=== PATIENT | female | born 1995 | race Caucasian/White ===

== ENCOUNTER 2019-12-29 11:40 | Emergency (ER) | payer OTHER ==
[2019-12-29] MEDS ORDERED: IBUPROFEN 600 MG TAB PO STA (12:21)
--- NOTE | 2019-12-29 12:50 | ED ---
General Adult HPI - General Chief complaint: Extremity Injury, Lower Stated complaint: Toe injury Time Seen by Provider: 12/29/19 11:50 Source: patient, RN notes reviewed Mode of arrival: ambulatory Limitations: no limitations - History of Present Illness Initial comments: 24-year-old female presents to the emergency department for a chief complaint of great toe pain. Patient stubbed her toe yesterday and states it has been painful since. Patient states she also scraped it on the step. States under her nail hurts the most. Patient denies any other injuries. Patient did not fall. Patient has no other complaints at this time including shortness of breath, chest pain, abdominal pain, nausea or vomiting, headache, or visual changes. - Related Data Previous Rx's Medication Instructions Recorded Cephalexin [Keflex] 500 mg PO Q6HR 10 Days #40 cap 12/29/19 Sulfamethox-Tmp 800-160Mg [Bactrim 1 tab PO Q12HR #20 tab 12/29/19 DS 800-160 mg] Allergies Allergy/AdvReac Type Severity Reaction Status Date / Time No Known Allergies Allergy Verified 12/29/19 11:47 Review of Systems ROS Statement: Those systems with pertinent positive or pertinent negative responses have been documented in the HPI. ROS Other: All systems not noted in ROS Statement are negative. Past Medical History Past Medical History: Asthma Additional Past Medical History / Comment(s): heart murmur,migraines History of Any Multi-Drug Resistant Organisms: None Reported Past Surgical History: Orthopedic Surgery, Tonsillectomy Additional Past Surgical History / Comment(s): rt wrist Past Psychological History: Anxiety, Depression, PTSD Smoking Status: Never smoker Past Alcohol Use History: None Reported Past Drug Use History: None Reported General Exam Limitations: no limitations General appearance: alert, in no apparent distress Head exam: Present: atraumatic, normocephalic, normal inspection Eye exam: Present: normal appearance, PERRL, EOMI. Absent: scleral icterus, conjunctival injection, periorbital swelling ENT exam: Present: normal exam, mucous membranes moist Neck exam: Present: normal inspection, full ROM. Absent: tenderness, meningismus, lymphadenopathy Respiratory exam: Present: normal lung sounds bilaterally. Absent: respiratory distress, wheezes, rales, rhonchi, stridor Cardiovascular Exam: Present: regular rate, normal rhythm, normal heart sounds. Absent: systolic murmur, diastolic murmur, rubs, gallop, clicks Extremities exam: Present: full ROM (Full range of motion of the right great toe.), tenderness (Tenderness noted to the dorsal aspect of the distal phalanx of the right great toe.), normal capillary refill (Capillary refill less than 2 seconds of the right great toe.), other (Patient does have a small amount of purulent material under the distal portion of the great toe. Plantar aspect of toe is soft, no evidence of felon.). Absent: pedal edema, joint swelling, calf tenderness Course Vital Signs 12/29/19 11:43 Temperature 97.7 F Pulse Rate 88 Respiratory 18 Rate Blood Pressure 157/96 O2 Sat by Pulse 99 Oximetry Procedures - Incision & Drainage Consent Obtained: verbal consent Indication: abscess Site: foot I&D Cleaning Method: Chloroprep I&D Drainage Obtained: Blood (used cautery pen) Medical Decision Making - Medical Decision Making X-ray negative for acute osseous of normality. I do not see any evidence of foreign body. There is mild soft tissue swelling. I did use a cautery pen to expel pus under the nail bed. There is no lateral or medial nailfold paronychia present. Patient will try warm compresses to drain the pus flexible days. If symptoms do not improve she will start antibiotics. She will follow-up with her doctor. She'll return here for any worsening symptoms. Patient denies chance of . Disposition Clinical Impression: Abscess Disposition: HOME SELF-CARE Condition: Good Instructions (If sedation given, give patient instructions): Warm Compress or Soak (ED) Additional Instructions: Please take Motrin and Tylenol as directed for pain. Do warm compresses and warm soaks to assist in drainage. If this is not helping next day or 2 start antibiotic therapy. Follow-up with your doctor in one to 2 days. If you're having worsening symptoms such as fevers, worsening swelling or other concerning symptoms return to the emergency room. Prescriptions: Sulfamethox-Tmp 800-160Mg [Bactrim DS 800-160 mg] 1 tab PO Q12HR #20 tab Cephalexin [Keflex] 500 mg PO Q6HR 10 Days #40 cap Is patient prescribed a controlled substance at d/c from ED?: No Referrals: Abiodun García NPC [Primary Care Provider] - 1-2 days Time of Disposition: 13:43
--- NOTE | 2019-12-29 13:30 | XR ---
EXAMINATION TYPE: XR toes RT DATE OF EXAM: 12/29/2019 COMPARISON: NONE HISTORY: 24-year-old female stubbing injury to the great toe, pain TECHNIQUE: 3 views coned down right first toe FINDINGS: Mild soft tissue swelling of the great toe. No acute fracture, subluxation, dislocation. IMPRESSION: Mild soft tissue swelling. No acute osseous abnormality seen.
[2019-12-29 13:45] VITALS: BP 161/79; PULSE 79; RESP 16; TEMP 98.3
== END 2019-12-29 13:50 | disposition home or self-care (01) ==
LOC: EC 11:40
DX: L02.611 Cutaneous abscess of right foot (principal)
CPT/HCPCS: 10060; 99283

== ENCOUNTER 2020-03-26 18:49 | Emergency (ER) | payer OTHER ==
--- NOTE | 2020-03-26 19:24 | ED ---
General Adult HPI - General Chief complaint: Headache Stated complaint: headache Time Seen by Provider: 03/26/20 19:03 Source: patient, RN notes reviewed Mode of arrival: ambulatory Limitations: no limitations - History of Present Illness Initial comments: Patient is a pleasant 24-year-old female presenting to the emergency Department with complaints of headache. Patient did have lumbar puncture yesterday to evaluate for her chronic headaches. Patient has headache since that time. Headache is worse with certain positions including upright position. Discomfort is currently 6 or 7/10. Discomfort is mild with lying down. Headache is more frontal and temporal at this time. No fever. No weakness. - Related Data Home Medications Medication Instructions Recorded Confirmed Ibuprofen [Motrin Ib] 800 mg PO Q8H PRN 12/29/19 12/29/19 Naproxen [Naprosyn] 500 mg PO Q12HR PRN 12/29/19 12/29/19 Previous Rx's Medication Instructions Recorded Cephalexin [Keflex] 500 mg PO Q6HR 10 Days #40 cap 12/29/19 Sulfamethox-Tmp 800-160Mg [Bactrim 1 tab PO Q12HR #20 tab 12/29/19 DS 800-160 mg] Allergies Allergy/AdvReac Type Severity Reaction Status Date / Time bee venom protein (honey bee) Allergy Swelling Verified 03/26/20 18:55 chocolate flavor Allergy Unknown Verified 03/26/20 18:55 sertraline [From Zoloft] AdvReac HIGH Verified 03/26/20 18:55 ANXIETY ARTIFICIAL SWEETNERS Allergy Unknown Uncoded 03/26/20 18:55 Review of Systems ROS Statement: Those systems with pertinent positive or pertinent negative responses have been documented in the HPI. ROS Other: All systems not noted in ROS Statement are negative. Constitutional: Denies: fever Eyes: Denies: eye pain ENT: Denies: ear pain Respiratory: Denies: cough Cardiovascular: Denies: chest pain Endocrine: Denies: fatigue Gastrointestinal: Denies: abdominal pain Genitourinary: Denies: dysuria Musculoskeletal: Denies: back pain Skin: Denies: rash Neurological: Reports: headache. Denies: weakness, confusion Past Medical History Past Medical History: Asthma Additional Past Medical History / Comment(s): heart murmur,migraines History of Any Multi-Drug Resistant Organisms: None Reported Past Surgical History: Orthopedic Surgery, Tonsillectomy Additional Past Surgical History / Comment(s): rt wrist Past Psychological History: Anxiety, Depression, PTSD Smoking Status: Never smoker Past Alcohol Use History: None Reported Past Drug Use History: None Reported General Exam Limitations: no limitations General appearance: alert, in no apparent distress Head exam: Present: atraumatic, normocephalic Eye exam: Present: normal appearance, PERRL, EOMI ENT exam: Present: normal oropharynx Neck exam: Present: normal inspection. Absent: tenderness, meningismus Respiratory exam: Present: normal lung sounds bilaterally Cardiovascular Exam: Present: regular rate, normal rhythm GI/Abdominal exam: Present: soft. Absent: tenderness Extremities exam: Present: normal inspection Neurological exam: Present: alert Psychiatric exam: Present: normal affect, normal mood Skin exam: Present: normal color Course Vital Signs 03/26/20 18:50 Temperature 98.5 F Pulse Rate 73 Respiratory 18 Rate Blood Pressure 119/86 O2 Sat by Pulse 97 Oximetry Medical Decision Making - Medical Decision Making Case was discussed with anesthesia, Dr. Alvarado who did come evaluate the patient. Patient has now decided not to have lumbar puncture done and is comfortable with discharge. Patient is receptive to pain medication prior to discharge. Disposition Clinical Impression: Headache Disposition: HOME SELF-CARE Condition: Stable Instructions (If sedation given, give patient instructions): Acute Headache (ED) Additional Instructions: Please follow-up with your neurologist tomorrow. Please also follow-up with primary care physician in the next day or 2 for recheck. Return for fevers, weakness or confusion, worsening symptoms or other concerns. Is patient prescribed a controlled substance at d/c from ED?: No Referrals: Jerry Manrique MD [Primary Care Provider] - 1-2 days Time of Disposition: 19:51
[2020-03-26] MEDS ORDERED: HYDROmorphone 1 MG/ML 1 ML SYRINGE IM STA (19:48)
--- NOTE | 2020-03-26 19:59 | P.PAINCN ---
History of Present Illness - Reason for Consult Consult date: 03/26/20 - History of Present Illness The pleasant 24-year-old female who recently had a lumbar puncture for eval of pseudotumor cerebri at an outside facility was referred here for evaluation for epidural blood patch. Patient had the lumbar puncture yesterday and has since had a headache that she says gets worse with sitting up and gets slightly better with laying down. She does not report any worsening of her headache, blurry vision, motor or sensory deficits or any other cranial nerve abnormalities. Patient has never had a lumbar puncture prior to this or any epidural injection in the past. In addition to above, 13-point review of systems is also negative for chest pain, shortness of breath, changes in vision, changes in hearing, new onset weakness, abdominal pain, diarrhea, extreme fatigue, malaise, fever, skin changes, homicidal or suicidal ideation, or bowel or bladder incontinence. Physical exam: Vital Signs: Reviewed in EMR GENERAL: Well appearing, in no acute distress, sitting comfortably PSYCH: Mood and affect is appropriate. Awake, alert, and oriented SKIN: Skin color, texture, turgor normal, no rashes or lesions HEENT: Normocephalic, atraumatic. EOM intact CV: No pedal edema RESP: Respirations are unlabored, no audible wheezing GI: Abdomen non-distended MUSCULOSKELETAL: Bilateral upper and lower extremity strength is normal and symmetric. No atrophy or tone abnormalities are noted. Extremities: Peripheral joint ROM is full and pain free without obvious instability or laxity in all four extremities. No edema or skin discolorations noted. NEUR: Bilateral upper and lower extremity coordination and muscle stretch reflexes are physiologic and symmetric. Negative clonus. No loss of sensation is noted. Cranial nerves are grossly intact. Assessment: 1. Post meningeal puncture headache Plan: - Had a discussion with the patient and her mother regarding her pathology. I mentioned that 85% of post meningeal puncture headaches resolve within 5-7 days. It is also promising that when I came into the room, the patient was sitting comfortably with all lights illuminated and not very uncomfortable. I educated her on the risks of the procedure which included possible worsening of the headache, infection, bleeding. After hearing the risks and benefits of the procedure, the patient decided that she would like to defer the procedure an opt for conservative management. At this time I would recommend bed rest and caffeine 300 mg 1-2x daily as needed for the next few days. If she is still feeling significant discomfort she can come back for the blood patch. Past Medical History Past Medical History: Asthma Additional Past Medical History / Comment(s): heart murmur,migraines History of Any Multi-Drug Resistant Organisms: None Reported Past Surgical History: Orthopedic Surgery, Tonsillectomy Additional Past Surgical History / Comment(s): rt wrist Past Psychological History: Anxiety, Depression, PTSD Smoking Status: Never smoker Past Alcohol Use History: None Reported Past Drug Use History: None Reported Medications and Allergies Home Medications Medication Instructions Recorded Confirmed Type Cephalexin [Keflex] 500 mg PO Q6HR 10 Days #40 cap 12/29/19 Rx Ibuprofen [Motrin Ib] 800 mg PO Q8H PRN 12/29/19 12/29/19 History Naproxen [Naprosyn] 500 mg PO Q12HR PRN 12/29/19 12/29/19 History Sulfamethox-Tmp 800-160Mg [Bactrim 1 tab PO Q12HR #20 tab 12/29/19 Rx DS 800-160 mg] Allergies Allergy/AdvReac Type Severity Reaction Status Date / Time bee venom protein (honey bee) Allergy Swelling Verified 03/26/20 18:55 chocolate flavor Allergy Unknown Verified 03/26/20 18:55 sertraline [From Zoloft] AdvReac HIGH Verified 03/26/20 18:55 ANXIETY ARTIFICIAL SWEETNERS Allergy Unknown Uncoded 03/26/20 18:55 Physical Exam Vitals: Vital Signs Temp Pulse Resp BP Pulse Ox 03/26/20 18:50 98.5 F 73 18 119/86 97 Intake and Output 03/26/20 03/26/20 03/26/20 06:59 14:59 22:59 Other: Weight 158.757 kg PQRS Measure Charge Sheet PQRS Narrative: Blood Pressure 119/86 Pain Intensity 6 Scale Used Numeric (1 - 10) Home Medications: Ambulatory Orders Cephalexin [Keflex] 500 mg PO Q6HR 10 Days #40 cap 12/29/19 Ibuprofen [Motrin Ib] 800 mg PO Q8H PRN 12/29/19 Naproxen [Naprosyn] 500 mg PO Q12HR PRN 12/29/19 Sulfamethox-Tmp 800-160Mg [Bactrim DS 800-160 mg] 1 tab PO Q12HR #20 tab 12/29/19
[2020-03-26 20:19] VITALS: BP 118/80; PULSE 71; RESP 16; TEMP 98.3
== END 2020-03-26 20:17 | disposition home or self-care (01) ==
LOC: EC 18:49
DX: R51.9 Headache, unspecified (principal); G97.1 Other reaction to spinal and lumbar puncture; Z91.030 Bee allergy status; Z91.048 Other nonmedicinal substance allergy status; Z88.8 Allergy status to other drugs, medicaments and biological substances; Z91.02 Food additives allergy status
CPT/HCPCS: 99284; 96372; J1170

== ENCOUNTER 2020-03-29 10:40 | Emergency (ER) | payer OTHER ==
[2020-03-29] MEDS ORDERED: diphenhydrAMINE 50 MG/ML 1 ML VIAL IVP STA (11:06)
[2020-03-29] MEDS ORDERED: ACETAMINOPHEN TAB 325 MG TAB PO STA (11:06)
[2020-03-29] MEDS ORDERED: ONDANSETRON 4 MG/2 ML VIAL IVP STA (11:06)
--- NOTE | 2020-03-29 11:27 | ED ---
Headache HPI - General Chief Complaint: Headache Stated Complaint: migraine Time Seen by Provider: 03/29/20 10:53 Mode of arrival: ambulatory Limitations: no limitations - History of Present Illness Initial Comments: Patient is a 24-year-old obese female who presents the ER with the complaint of headache. She stated that she recently got a lumbar puncture done to test for pseudotumor cerebri. She stated that 2 days after the lumbar puncture she presented to the ER with acute headache that was worse with position changes. She was seen by pain management and anesthesia. She deferred a blood patch at that time period and opted for conservative management with caffeine. Today she notes that the headache has not subsided at all. She noted that it was generalized pain. She noted that she was interested in possibly getting the blood patch done today. She stated that the pain is 8-9 out of 10. She noted that everything makes the headache worse such as lites sound spells position changes. She noted that the caffeine was not helping but minimally. Patient denied any nausea, vomiting, constipation, diarrhea, chills, fever, change in vision, change in hearing, chest pain, shortness of breath, dysuria - Related Data Home Medications Medication Instructions Recorded Confirmed Ibuprofen [Motrin Ib] 800 mg PO Q8H PRN 12/29/19 03/29/20 Albuterol Nebulized [Ventolin 2.5 mg INHALATION RT-QID PRN 03/29/20 03/29/20 Nebulized] Albuterol Sulfate [Ventolin HFA] 2 puff INHALATION RT-QID PRN 03/29/20 03/29/20 EPINEPHrine (Auto Inject) [Epipen] 0.3 mg IM ONCE PRN 03/29/20 03/29/20 acetaZOLAMIDE [Diamox Sequels] 500 mg PO BID@0900,1500 03/29/20 03/29/20 Allergies Allergy/AdvReac Type Severity Reaction Status Date / Time bee venom protein (honey bee) Allergy Swelling Verified 03/29/20 11:29 chocolate flavor Allergy Unknown Verified 03/29/20 11:29 sertraline [From Zoloft] AdvReac HIGH Verified 03/29/20 11:29 ANXIETY ARTIFICIAL SWEETNERS Allergy Unknown Uncoded 03/29/20 11:29 Review of Systems ROS Statement: Those systems with pertinent positive or pertinent negative responses have been documented in the HPI. ROS Other: All systems not noted in ROS Statement are negative. Past Medical History Past Medical History: Asthma Additional Past Medical History / Comment(s): heart murmur,migraines History of Any Multi-Drug Resistant Organisms: None Reported Past Surgical History: Orthopedic Surgery, Tonsillectomy Additional Past Surgical History / Comment(s): rt wrist Past Psychological History: Anxiety, Depression, PTSD Smoking Status: Never smoker Past Alcohol Use History: None Reported Past Drug Use History: None Reported General Exam Limitations: no limitations General appearance: alert, in no apparent distress Head exam: Present: atraumatic, normocephalic, normal inspection Eye exam: Present: normal appearance, PERRL, EOMI. Absent: scleral icterus, conjunctival injection, periorbital swelling ENT exam: Present: normal exam, mucous membranes moist Neck exam: Present: normal inspection. Absent: tenderness, meningismus, lymphadenopathy Respiratory exam: Present: normal lung sounds bilaterally. Absent: respiratory distress, wheezes, rales, rhonchi, stridor Cardiovascular Exam: Present: regular rate, normal rhythm, normal heart sounds. Absent: systolic murmur, diastolic murmur, rubs, gallop, clicks GI/Abdominal exam: Present: soft, normal bowel sounds. Absent: distended, tenderness, guarding, rebound, rigid Extremities exam: Present: normal inspection, full ROM, normal capillary refill. Absent: tenderness, pedal edema, joint swelling, calf tenderness Neurological exam: Present: alert, oriented X3, CN II-XII intact Psychiatric exam: Present: normal affect, normal mood Skin exam: Present: warm, dry, intact, normal color. Absent: rash Course Vital Signs 03/29/20 10:42 Temperature 98.4 F Pulse Rate 85 Respiratory 18 Rate Blood Pressure 121/84 O2 Sat by Pulse 97 Oximetry Medical Decision Making - Medical Decision Making 24-year-old white female status post lumbar puncture. 5-6 days out. Anesthesia was consult good. Anesthesia is going to go ahead and proceed with the blood patch. Patient is getting Benadryl Zofran and Tylenol to help with pain nausea and headache. Disposition Clinical Impression: Migraine headache, Post-dural puncture headache Disposition: HOME SELF-CARE Instructions (If sedation given, give patient instructions): Acute Headache (ED), Epidural Blood Patch (DC) Is patient prescribed a controlled substance at d/c from ED?: No Referrals: Jerry Manrique MD [Primary Care Provider] - 1-2 days Time of Disposition: 12:47
--- NOTE | 2020-03-29 12:26 | P.PCN ---
Date of Procedure: 03/29/20 Procedure(s) Performed: Procedure= lumbar epidural blood patch. Preoperative diagnosis= postdural puncture headache. Postoperative diagnoses= post dural puncture headache. Indication for the procedure= patient developed headache after agnostic lumbar puncture done in 03/25/2020, headache persists in spite of conservative treatment, there is no focal neurological deficit, no fever, no neck stiffness, headache worse with sitting and standing position, and improved with lying supine, for this reason patient is a good candidate for epidural blood patch. anesthesia= local infiltration with lidocaine 1% 3 mL. Complications= none. Description of the procedure= patient identified risks and benefits of the procedure explained to the patient and patient agreed with proceeding, vital signs monitored during the procedure and IV sedation given to decrease anxiety, Back lumbar area prepped with chlorhexidine 3 times, then drape applied the local infiltration of the skin and subcutaneous tissue with lidocaine 1% 3 mL at L5-S1 interlaminar space then 18-gauge 5 inches long Tuohy needle advanced slowly at L4-5 interlaminar space, There was positive loss of resistance to normal saline, no heme no paresthesia no cerebrospinal fluid, then after that 20 ML of the blood taken from the patient under strict sterile technique, and after the left antecubital area prepped with a chlorhexidine 3 times using 20-gauge Angiocath, and under sterile technique the 20 ML of the block taken from the patient injected in the epidural space after negative aspiration for heme or CSF and there was no paresthesia then the needle removed intact the skin cleaned and the , bandage applied and patient discharged home in stable condition after discharge criteria met, and patient will follow up with the clinic when necessary
[2020-03-29] MEDS ORDERED: ONDANSETRON ODT 4 MG TAB PO STA (12:41)
[2020-03-29] MEDS ORDERED: diphenhydrAMINE 25 MG CAP PO STA (12:41)
[2020-03-29 12:55] VITALS: BP 126/65; PULSE 78; RESP 20; TEMP 98.2
== END 2020-03-29 12:50 | disposition home or self-care (01) ==
LOC: EC 10:40
DX: G43.909 Migraine, unspecified, not intractable, without status migrainosus (principal); G97.1 Other reaction to spinal and lumbar puncture; J45.909 Unspecified asthma, uncomplicated; Z79.899 Other long term (current) drug therapy; Z91.030 Bee allergy status; Z91.018 Allergy to other foods; Z91.02 Food additives allergy status; Z88.8 Allergy status to other drugs, medicaments and biological substances
CPT/HCPCS: 62273; 99283

== ENCOUNTER → 2020-04-17 | Outpatient (CLI) | payer OTHER ==
[2020-04-17 15:34] VITALS: BP 141/86; PULSE 87; RESP 18; TEMP 98.2; BMI 63.6
--- NOTE | 2020-04-17 15:40 | P.HPBAR ---
Bariatric H&P - History & Physicial H&P Date: 04/17/20 History & Physicial: Visit/CC: initial visit Patient initial contact: Initial weight: Initial weight in pounds: Height: 5 ft 5.5 in Initial BMI: Last weight: Current weight: 175.994 kg Current weight in pounds: 388.00 Current BMI: 63.6 [place] body weight (based on NIH guidelines): 57.833 kg Excess body weight loss: The patient is a 24 year-old F who presents for Bariatric Assessment. DATE OF SERVICE: 04/17/2020 REASON FOR CONSULTATION: Initial bariatric evaluation. HISTORY OF PRESENT ILLNESS: Lisseth Mccormack is a 24-year-old female who comes with lifelong morbid obesity. She has been trying to loose weight for at least 10 years and as a child. Her highest weight is at present. She reports 60 pounds weight gain from the Depovera control injection. She has tried Keto diet, supplements, calorie counts, gyms, without any successful weight loss including fasting. Her most weight loss is 10 pounds. She denies any prior abdominal surgeries. Her father is ex- and has tried diet and exercise with him. Her mother has troubles with her weight. She reports lower back pain as a result of her morbid obesity. She reports being accident prone. She denies hip pain. She has knee pain and her ankles roll. She reports lower extremity swelling. She has easy bruising. She has spontaneous bleeds. She has sleep apnea and reports daytime fatigue. She has high blood pressure. She has migraines. Her primary care provider is Mauricio García.She is looking into weight loss. She is looking into the procedure with the least amount of risk. She presents to me first time in consultation for weight loss management. At height of 5 feet 5.5 inches, her ideal body weight is 149 pounds. She comes in 387 pounds. Her body mass index is 63.6. She is 238 pounds overweight. PAST MEDICAL HISTORY: 1. Morbid obesity due to excess calories 2. Body mass index of 63.6, initial 3. Osteoarthritis of the knees. 4. Osteoarthritis of the lower back. 5. Asthma 6. Migraines 7. Depressive disorder 8. Generalized anxiety disorder 9. Post traumatic stress disorder (PTSD) 10. Bilateral lower extremity edema PAST SURGICAL HISTORY: 1. Tonsillectomy 2. Adenoidectomy 3. Right wrist surgery 4. [place] tooth extraction HOME MEDICATIONS: Home Medications Medication Instructions Recorded Confirmed Ibuprofen [Motrin Ib] 800 mg PO Q8H PRN 12/29/19 04/17/20 Albuterol Sulfate [Ventolin HFA] 2 puff INHALATION RT-QID PRN 03/29/20 04/17/20 EPINEPHrine (Auto Inject) [Epipen] 0.3 mg IM ONCE PRN 03/29/20 04/17/20 acetaZOLAMIDE [Diamox Sequels] 500 mg PO BID@0900,1500 03/29/20 04/17/20 Ipratropium-Albuterol Nebulize 3 ml INHALATION DIRECTED PRN 04/17/20 04/17/20 [Duoneb 0.5 mg-3 mg/3 ml Soln] Zonisamide [Zonegran] 100 mg PO DAILY 04/17/20 04/17/20 ALLERGIES: Allergies Allergy/AdvReac Type Severity Reaction Status Date / Time bee venom protein (honey bee) Allergy Swelling Verified 04/17/20 15:42 chocolate flavor Allergy Unknown Verified 04/17/20 15:42 sertraline [From Zoloft] AdvReac HIGH Verified 04/17/20 15:42 ANXIETY ARTIFICIAL SWEETNERS Allergy Unknown Uncoded 04/17/20 15:42 SOCIAL HISTORY: Denies past tobacco use. FAMILY HISTORY: No family history of ulcerative colitis disease or Crohn's disease. Family history of morbid obesity. No lupus in the family. No reports of stomach or esophageal cancer. REVIEW OF ORGAN SYSTEMS: CONSTITUTIONAL: At height of 5 feet 5.5 inches, her ideal body weight is 149 pounds. She comes in 387 pounds. Her body mass index is 63.6. She is 238 pounds overweight. HEENT: Denies any active troubles with vision or hearing. ENDOCRINE: Denies diabetes. No hypothyroidism. CARDIOVASCULAR: Has past reports of palpitations or heart attacks or chest pain. Has heart murmurs. Has hypertension, untreated. RESPIRATORY: Has asthma. Has sleep apnea, untreated. GASTROINTESTINAL: Denies any bright red blood per rectum. No diarrhea. No constipation. Has gastroesophageal reflux disease. GENITOURINARY: No bladder urgency. No recent blood in urine MUSCULOSKELETAL: Has lower back pain and joint pain. Has osteoarthritis of the knees. History of bilateral lower extremity edema. NEURO: Has headaches. No seizure disorders. PSYCH: Has depression. No suicidal ideation. Has anxiety and post traumatic stress disorder. RHEUMATOLOGIC: No lupus. No rheumatoid arthritis. HEMATOLOGIC: Denies any abnormal bleeding. Has easy bruising. SKIN: No rash. No skin cancer. PHYSICAL EXAM: VITAL SIGNS: Height 5 foot 5.5 inches, weight 387 pounds. BMI 63.6 Vital Signs Temp 98.2 F 04/17/20 15:23 Pulse 87 04/17/20 15:23 Resp 18 04/17/20 15:23 BP 141/86 04/17/20 15:23 Pulse Ox GENERAL: Well-developed in no acute distress. HEENT: No scleral icterus. Extraocular movements grossly intact. Hears conversational speech. No nasal drainage. NECK: Supple without lymphadenopathy. CHEST: Nonlabored respirations with equal bilateral excursions. CARDIOVASCULAR: Regular rate and regular rhythm. Distal 2+ pulses. ABDOMEN: Obese, soft, nontender, nondistended. MUSCULOSKELETAL: No clubbing, cyanosis. NEURO: No focal or lateralizing signs. Cranial nerves 2 through 12 grossly within normal limits. PSYCH: Appropriate affect. Alert and oriented to person, place and time. SKIN: Good skin turgor. Well perfused. ASSESSMENT: 1. Morbid obesity due to excess calories 2. Body mass index of 63.6, initial 3. Osteoarthritis of the knees. 4. Osteoarthritis of the lower back. 5. Asthma 6. Migraines 7. Depressive disorder 8. Generalized anxiety disorder 9. Post traumatic stress disorder (PTSD) 10. Bilateral lower extremity edema PLAN: 1. Surgical options including a band, gastric bypass, sleeve gastrectomy were described in detail. Alternatives such as gastric balloon including duodenal switch were described. She is looking into the gastric bypass. 2. The [place] bariatric surgical collaborative data and outcomes calculator were described with surgical options. 3. Recommend a bariatric metabolic panel to evaluate for micro- including macronutrient deficiencies. 4. For history of daytime somnolence, recommend evaluation and treatment for sleep apnea. 5. Dietary surveillance and counseling was reviewed. Increased protein intake over 65 grams daily advised. 6. Will need cardiac risk assessment. 7. Recommend medical risk assessment. 8. Psych assessment per insurance guidelines. 9. Recommend upper endoscopy. 10. Recommend 12-lead EKG. Thank you for this consultation. Past Medical History Past Medical History: Asthma Additional Past Medical History / Comment(s): heart murmur,migraines History of Any Multi-Drug Resistant Organisms: None Reported Past Surgical History: Adenoidectomy, Orthopedic Surgery, Tonsillectomy Additional Past Surgical History / Comment(s): rt wrist; wisdom teeth Past Anesthesia/Blood Transfusion Reactions: No Reported Reaction Past Psychological History: Anxiety, Depression, PTSD Smoking Status: Never smoker Past Alcohol Use History: None Reported Past Drug Use History: None Reported Surgical - Exam Vital Signs Temp Pulse Resp BP 98.2 F 87 18 141/86 04/17/20 15:23 04/17/20 15:23 04/17/20 15:23 04/17/20 15:23 Bariatric Checklist Checklist: Plan: Checklist: EGD: 1. Hiatal hernia: 2. H. Pylori: HgbA1c: Vitamin D: Smoking: Primary care physician referral: Dr. García ([place]) Psychiatry clearance: Cardiology clearance: Sleep study: Diet journal: VTE risk score: VTE risk level: Rehab needs at discharge:
== END | disposition home or self-care (01) ==
LOC: BARWHC3 14:26
PROVIDERS: ATTEND Surgery Plastic and Reconstructive Surgery
DX: E66.01 Morbid (severe) obesity due to excess calories (principal); Z68.44 Body mass index [BMI] 60.0-69.9, adult; M17.0 Bilateral primary osteoarthritis of knee; J45.909 Unspecified asthma, uncomplicated; M47.816 Spondylosis without myelopathy or radiculopathy, lumbar region; G43.909 Migraine, unspecified, not intractable, without status migrainosus; F32.9 Major depressive disorder, single episode, unspecified; F41.1 Generalized anxiety disorder; F43.10 Post-traumatic stress disorder, unspecified; R60.0 Localized edema; Z91.030 Bee allergy status; Z91.02 Food additives allergy status
CPT/HCPCS: 99211

== ENCOUNTER → 2020-04-24 | Outpatient (CLI) | payer OTHER ==
[2020-04-24 16:16] LABS: HCT 40.5 % (37.2-46.3); HGB 13.3 g/dL (12.0-15.0); MCH 29.7 pg (27.0-32.0); MCHC 32.8 g/dL (32.0-37.0); MCV 90.4 fL (80.0-97.0); Mean Platelet Volume 9.5 fL (9.5-12.2); Platelet Count 363 X 10*3/uL (140-440); RBC 4.48 X 10*6/uL (4.10-5.20); RDW 12.9 % (11.5-14.5); WBC 10.09 X 10*3/uL (4.50-10.00)
[2020-04-24 17:15] LABS: Hemoglobin A1C 5.3 % (4.0-6.0)
[2020-04-24 20:38] LABS: % Iron Saturation 13.08 (12.00-45.00); Albumin 4.4 g/dL (3.80-4.90); Albumin/Globulin Ratio 1.83 (1.60-3.17); Anion Gap 6.7 mmol/L (4.00-12.00); Calcium 9.2 mg/dL (8.7-10.3); Carbon Dioxide 22.3 mmol/L (21.6-31.8); Chol/HDL Ratio 5.22; Globulin 2.4 g/dL (1.6-3.3); LDL Cholesterol,Calculated 133.6 mg/dL (0.0-131.0); Non-African American GFR(CKD) 79.3 (60.0-200.0); Phosphorus 4.8 mg/dL (2.4-5.1); Total Bilirubin 0.3 mg/dL (0.3-1.2); Total Protein 6.8 g/dL (6.2-8.2); VLDL Calculation 22.4 mg/dL (5.00-40.00)
[2020-04-24 20:44] LABS: Ferritin 38.4 ng/mL (10.0-291.0)
[2020-04-24 20:46] LABS: Folate, Serum 3.3 ng/mL
[2020-04-24 22:33] LABS: INR 0.91 (0.90-1.11); Partial Thromboplastin Time 26.7 sec (23.5-31.0)
[2020-04-25 10:15] LABS: Zinc, Serum 61 ug/dL (60-130)
[2020-04-26 07:06] LABS: Vitamin A 43 ug/dL (38-106)
[2020-04-26 13:47] LABS: Vit B1(Thiamine) 87 ug/L (38-122)
[2020-04-28 18:04] LABS: Selenium 104 mcg/L (63-160)
== END | disposition home or self-care (01) ==
LOC: LABWHC1 10:10
PROVIDERS: ATTEND Surgery Plastic and Reconstructive Surgery
DX: E55.9 Vitamin D deficiency, unspecified (principal); E66.01 Morbid (severe) obesity due to excess calories; E89.1 Postprocedural hypoinsulinemia; D50.8 Other iron deficiency anemias; K90.89 Other intestinal malabsorption; K50.90 Crohn's disease, unspecified, without complications; K74.1 Hepatic sclerosis; N19 Unspecified kidney failure
CPT/HCPCS: 36415; 80053; 80061; 82306; 82525; 82607; 82728; 82746; 83036; 83540; 83550; 83735; 83970; 84100; 84134; 84255; 84425; 84443; 84590; 84630; 85027; 85610; 85730; 93005

== ENCOUNTER 2020-07-15 07:03 | Day surgery (SDC) | payer OTHER ==
[2020-07-12 10:41] VITALS: BMI 62.7
[~2020-07-15 07:03] MED LIST: LACTATED RINGERS 1,000 ML IV SCH
[2020-07-15 07:26] VITALS: TEMP 98.1
[2020-07-15] MEDS ORDERED: ONDANSETRON 4 MG/2 ML VIAL ONE (07:32)
[2020-07-15] MEDS ORDERED: LACTATED RINGERS 1,000 ML IV ONE (07:34)
--- NOTE | 2020-07-15 07:35 | P.GSHP ---
History of Present Illness H&P Date: 07/15/20 CHIEF COMPLAINT: GERD HISTORY OF PRESENT ILLNESS: The patient is a 24-year-old female who presents reports gastroesophageal reflux disease. Upper endoscopy was offered for further evaluation and management. PAST MEDICAL HISTORY: Please see list. PAST SURGICAL HISTORY: Please see list. MEDICATIONS: Please see list. ALLERGIES: Please see list. SOCIAL HISTORY: No illicit drug use FAMILY HISTORY: No reports of Crohn disease or ulcerative colitis. REVIEW OF ORGAN SYSTEMS: CONSTITUTIONAL: No reports of fevers or chills. GI: Denies any blood in stools or constipation. PHYSICAL EXAM: VITAL SIGNS: Stable GENERAL: Well-developed and pleasant in no acute distress. HEENT: No scleral icterus. Extraocular movements grossly intact. Moist buccal mucosa. NECK: Supple without lymphadenopathy. CHEST: Unlabored respirations. Equal bilateral excursions. CARDIOVASCULAR: Regular rate and rhythm. Distal 2+ pulses. ABDOMEN: Soft, nondistended. MUSCULOSKELETAL: No clubbing, cyanosis, or edema. ASSESSMENT: 1. Gastroesophageal reflux disease PLAN: 1. Recommend proceeding with an upper endoscopy Past Medical History Past Medical History: Asthma, GERD/Reflux Additional Past Medical History / Comment(s): heart murmur- "Heart skips a beat" chronic migraines, constipation, yeast rash abdominal fold, History of Any Multi-Drug Resistant Organisms: None Reported Past Surgical History: Adenoidectomy, Orthopedic Surgery, Tonsillectomy Additional Past Surgical History / Comment(s): rt wrist surgery for torn ligament; wisdom teeth Past Anesthesia/Blood Transfusion Reactions: No Reported Reaction Smoking Status: Never smoker - Past Family History Mother Family Medical History: Cancer Medications and Allergies Home Medications Medication Instructions Recorded Confirmed Type Albuterol Sulfate [Ventolin HFA] 2 puff INHALATION RT-QID PRN 03/29/20 07/12/20 History EPINEPHrine (Auto Inject) [Epipen] 0.3 mg IM ONCE PRN 03/29/20 07/12/20 History acetaZOLAMIDE [Diamox Sequels] 500 mg PO BID 03/29/20 07/12/20 History Ipratropium-Albuterol Nebulize 3 ml INHALATION DIRECTED PRN 04/17/20 07/12/20 History [Duoneb 0.5 mg-3 mg/3 ml Soln] Zonisamide [Zonegran] 200 mg PO HS 04/17/20 07/12/20 History Ergocalciferol [Vitamin D2 (1250 50,000 unit PO SA 05/09/20 07/12/20 History Mcg = 07577 Iu)] FLUoxetine HCL [PROzac] 20 mg PO DAILY 07/12/20 07/12/20 History Norgestimate-Ethinyl Estradiol 1 tab PO 1500 07/12/20 07/12/20 History [Sprintec 28 Day Tablet] Allergies Allergy/AdvReac Type Severity Reaction Status Date / Time bee venom protein (honey bee) Allergy Swelling Verified 07/12/20 10:31 chocolate flavor Allergy Unknown Verified 07/12/20 10:31 melatonin Allergy nausea, Verified 07/12/20 10:31 migraines trazodone Allergy Rash/Hives Verified 07/12/20 10:31 sertraline [From Zoloft] AdvReac HIGH Verified 07/12/20 10:31 ANXIETY ARTIFICIAL SWEETNERS Allergy Unknown Uncoded 07/12/20 10:31 Surgical - Exam Vital Signs Temp Pulse Resp BP Pulse Ox 98.1 F 85 18 138/75 97 07/15/20 07:25 07/15/20 07:25 07/15/20 07:25 07/15/20 07:25 07/15/20 07:25
[2020-07-15] MEDS ORDERED: PROPOFOL 10 MG/ML 20 ML VIAL IV ONE (07:53)
[2020-07-15] MEDS ORDERED: LIDOCAINE 1% INJ 10MG/ML (20 ML MDV) ONE (07:53)
--- NOTE | 2020-07-15 08:09 | P.PCN ---
Date of Procedure: 07/15/20 Description of Procedure: PREOPERATIVE DIAGNOSIS: Gastroesophageal reflux disease. Morbid obesity. POSTOPERATIVE DIAGNOSIS: Morbid obesity. Gastritis. Gastroesophageal reflux disease. OPERATION: Esophagogastroduodenoscopy with biopsies along antrum. SURGEON: Mikki Hankins MD ANESTHESIA: MAC. INDICATIONS: The patient is a 24-year-old female who presents with a history of reflux disease. Benefits and risks of the procedure were described. Informed consent was obtained. DESCRIPTION: The patient was brought into the endoscopy suite and laid in the left lateral decubitus position. An Olympus gastroscope was passed along the posterior oropharynx down to the distal esophagus where the squamocolumnar junction was encountered at 38 cm from the incisors. The stomach was entered and no bile reflux was found. Additional findings are listed below. Biopsies with cold forceps were obtained of the antrum. The first through third portion of the duodenum was examined and unremarkable. Retroflexion of the scope confirmed Hill grade 2 lower esophageal valve. The squamocolumnar junction demonstrated LA grade A erosive esophagitis. The stomach was desufflated. The patient tolerated the procedure well. FINDINGS: Squamocolumnar junction 38 cm from the incisors. Diaphragmatic hiatus at 38 cm. Hill grade 2 lower esophageal valve. LA grade A erosive esophagitis. No active duodenitis. Chronic gastritis with recent bleed RECOMMENDATIONS: Upper endoscopy as needed. Plan - Discharge Summary New Discharge Prescriptions: New Omeprazole [PriLOSEC] 40 mg PO DAILY #14 cap Continue acetaZOLAMIDE [Diamox Sequels] 500 mg PO BID EPINEPHrine (Auto Inject) [Epipen] 0.3 mg IM ONCE PRN PRN Reason: Anaphylaxis Albuterol Sulfate [Ventolin HFA] 2 puff INHALATION RT-QID PRN PRN Reason: Shortness Of Breath Zonisamide [Zonegran] 200 mg PO HS Ipratropium-Albuterol Nebulize [Duoneb 0.5 mg-3 mg/3 ml Soln] 3 ml INHALATION DIRECTED PRN PRN Reason: Shortness Of Breath Ergocalciferol [Vitamin D2 (1250 Mcg = 35207 Iu)] 50,000 unit PO SA Norgestimate-Ethinyl Estradiol [Sprintec 28 Day Tablet] 1 tab PO 1500 FLUoxetine HCL [PROzac] 20 mg PO DAILY Discharge Medication List Albuterol Sulfate [Ventolin HFA] 2 puff INHALATION RT-QID PRN 03/29/20 [History] EPINEPHrine (Auto Inject) [Epipen] 0.3 mg IM ONCE PRN 03/29/20 [History] acetaZOLAMIDE [Diamox Sequels] 500 mg PO BID 03/29/20 [History] Ipratropium-Albuterol Nebulize [Duoneb 0.5 mg-3 mg/3 ml Soln] 3 ml INHALATION DIRECTED PRN 04/17/20 [History] Zonisamide [Zonegran] 200 mg PO HS 04/17/20 [History] Ergocalciferol [Vitamin D2 (1250 Mcg = 75780 Iu)] 50,000 unit PO SA 05/09/20 [History] FLUoxetine HCL [PROzac] 20 mg PO DAILY 07/12/20 [History] Norgestimate-Ethinyl Estradiol [Sprintec 28 Day Tablet] 1 tab PO 1500 07/12/20 [History] Omeprazole [PriLOSEC] 40 mg PO DAILY #14 cap 07/15/20 [Rx] Follow up Appointment(s)/Referral(s): [facility] [NON-STAFF] - 07/24/20 Patient Instructions/Handouts: Diet for Stomach Ulcers and Gastritis (ED), Gastritis (DC) Discharge Disposition: HOME SELF-CARE
[2020-07-15 08:10] VITALS: RESP 16
[2020-07-15 08:38] VITALS: BP 119/84; PULSE 68
== END 2020-07-15 08:57 | disposition home or self-care (01) ==
LOC: ORWHC2ENDO 07:03
PROVIDERS: ATTEND Surgery Plastic and Reconstructive Surgery
DX: K29.50 Unspecified chronic gastritis without bleeding (principal); K22.10 Ulcer of esophagus without bleeding; J45.909 Unspecified asthma, uncomplicated; K21.9 Gastro-esophageal reflux disease without esophagitis; E66.01 Morbid (severe) obesity due to excess calories; Z68.44 Body mass index [BMI] 60.0-69.9, adult; R01.1 Cardiac murmur, unspecified; G43.909 Migraine, unspecified, not intractable, without status migrainosus; Z90.89 Acquired absence of other organs; Z98.890 Other specified postprocedural states; Z80.9 Family history of malignant neoplasm, unspecified; Z79.899 Other long term (current) drug therapy; Z79.3 Long term (current) use of hormonal contraceptives; Z91.030 Bee allergy status; Z91.02 Food additives allergy status; Z88.8 Allergy status to other drugs, medicaments and biological substances; Z91.018 Allergy to other foods
CPT/HCPCS: 81025; 88305; 88342; 43239; J2405; J2001; J2704

== ENCOUNTER → 2020-07-24 | Outpatient (CLI) | payer OTHER ==
[2020-07-24 17:06] VITALS: BP 120/87; PULSE 76; RESP 18; TEMP 97.7; BMI 61.4
--- NOTE | 2020-07-24 17:15 | P.PN ---
Subjective Progress Note Date: 07/24/20 DATE OF SERVICE: 07/24/2020 CHIEF COMPLAINT: Morbid obesity HISTORY OF PRESENT ILLNESS: Lisseth Mccormack is a 24-year-old female who comes with lifelong morbid obesity. She has been trying to loose weight for at least 10 years and as a child. As a result of her morbid obesity she has developed lower extremity swelling, sleep apnea, hypertension, migraines. She is enrolled in medical supplies weight loss. She completed a upper endoscopy. She reports being recently placed on omeprazole and has intolerance with diarrhea. At height of 5 feet 5.5 inches, her ideal body weight is 149 pounds. Her highest weight is 387 pounds. Her body mass index is 63.6. She comes in ranges 74 pounds from 387 pounds 3 months ago. She has lost 13 pounds in 3 months. Her body mass index of 61.4. She is 225 pounds overweight. PAST MEDICAL HISTORY: 1. Morbid obesity due to excess calories 2. Body mass index of 63.6, initial 3. Osteoarthritis of the knees. 4. Osteoarthritis of the lower back. 5. Asthma 6. Migraines 7. Depressive disorder 8. Generalized anxiety disorder 9. Post traumatic stress disorder (PTSD) 10. Bilateral lower extremity edema PAST SURGICAL HISTORY: 1. Tonsillectomy 2. Adenoidectomy 3. Right wrist surgery 4. [place] tooth extraction HOME MEDICATIONS: Home Medications Medication Instructions Recorded Confirmed Ibuprofen [Motrin Ib] 800 mg PO Q8H PRN 12/29/19 04/17/20 Albuterol Sulfate [Ventolin HFA] 2 puff INHALATION RT-QID PRN 03/29/20 04/17/20 EPINEPHrine (Auto Inject) [Epipen] 0.3 mg IM ONCE PRN 03/29/20 04/17/20 acetaZOLAMIDE [Diamox Sequels] 500 mg PO BID@0900,1500 03/29/20 04/17/20 Ipratropium-Albuterol Nebulize 3 ml INHALATION DIRECTED PRN 04/17/20 04/17/20 [Duoneb 0.5 mg-3 mg/3 ml Soln] Zonisamide [Zonegran] 100 mg PO DAILY 04/17/20 04/17/20 ALLERGIES: Allergies Allergy/AdvReac Type Severity Reaction Status Date / Time bee venom protein (honey bee) Allergy Swelling Verified 04/17/20 15:42 chocolate flavor Allergy Unknown Verified 04/17/20 15:42 sertraline [From Zoloft] AdvReac HIGH Verified 04/17/20 15:42 ANXIETY ARTIFICIAL SWEETNERS Allergy Unknown Uncoded 04/17/20 15:42 SOCIAL HISTORY: Denies past tobacco use. FAMILY HISTORY: No family history of ulcerative colitis disease or Crohn's disease. Family history of morbid obesity. No lupus in the family. No reports of stomach or esophageal cancer. REVIEW OF ORGAN SYSTEMS: CONSTITUTIONAL: At height of 5 feet 5.5 inches, her ideal body weight is 149 pounds. She comes in 387 pounds. Her body mass index is 63.6. She is 238 pounds overweight. HEENT: Denies any active troubles with vision or hearing. ENDOCRINE: Denies diabetes. No hypothyroidism. CARDIOVASCULAR: Has past reports of palpitations or heart attacks or chest pain. Has heart murmurs. Has hypertension, untreated. RESPIRATORY: Has asthma. Has sleep apnea, untreated. GASTROINTESTINAL: Denies any bright red blood per rectum. No diarrhea. No constipation. Has gastroesophageal reflux disease. GENITOURINARY: No bladder urgency. No recent blood in urine MUSCULOSKELETAL: Has lower back pain and joint pain. Has osteoarthritis of the knees. History of bilateral lower extremity edema. NEURO: Has headaches. No seizure disorders. PSYCH: Has depression. No suicidal ideation. Has anxiety and post traumatic stress disorder. RHEUMATOLOGIC: No lupus. No rheumatoid arthritis. HEMATOLOGIC: Denies any abnormal bleeding. Has easy bruising. SKIN: No rash. No skin cancer. PHYSICAL EXAM: VITAL SIGNS: Height 5 foot 5.5 inches, weight 374 pounds. BMI 61.4 Vital Signs Temp 97.7 F 07/24/20 16:59 Pulse 76 07/24/20 16:59 Resp 18 07/24/20 16:59 BP 120/87 07/24/20 16:59 Pulse Ox GENERAL: Well-developed in no acute distress. HEENT: No scleral icterus. Extraocular movements grossly intact. Hears conversational speech. No nasal drainage. NECK: Supple without lymphadenopathy. CHEST: Nonlabored respirations with equal bilateral excursions. CARDIOVASCULAR: Regular rate and regular rhythm. Distal 2+ pulses. ABDOMEN: Obese, soft, nontender, nondistended. MUSCULOSKELETAL: No clubbing, cyanosis. NEURO: No focal or lateralizing signs. Cranial nerves 2 through 12 grossly within normal limits. PSYCH: Appropriate affect. Alert and oriented to person, place and time. SKIN: Good skin turgor. Well perfused. LABS: WBC elevated over 10, iron low 45, vitamin D low 14.5, TSH elevated at 6.6 EKG: Normal sinus rhythm EGD FINDINGS: Squamocolumnar junction 38 cm from the incisors. Diaphragmatic hiatus at 38 cm. Hill grade 2 lower esophageal valve. LA grade A erosive esophagitis. No active duodenitis. Chronic gastritis with recent bleed Final Pathologic Diagnosis STOMACH, BIOPSY: Mild chronic and focally active gastritis. Immunostain with appropriate controls negative for Helicobacter organisms. ASSESSMENT: 1. Morbid obesity due to excess calories 2. Body mass index of 63.6, initial 3. Osteoarthritis of the knees. 4. Osteoarthritis of the lower back. 5. Asthma 6. Migraines 7. Depressive disorder 8. Generalized anxiety disorder 9. Post traumatic stress disorder (PTSD) 10. Bilateral lower extremity edema 11. Chronic gastritis 12. Obstructive sleep apnea 13. Hypothyroidism, new PLAN: 1. On review of her laboratory work she comes in with new diagnoses of hypothyroidism. Her TSH is elevated. Medicine reconciliation was performed with new prescription of synthroid 50 mcg daily now prescribed. 2. She comes in with new diagnosis of vitamin D deficiency. Plan for Vitamin D 50,000 weekly. 3. Will need re-check TSH and Vitamin D. 4. She has intolerance to Omeprazole. Recommend alternative such as Pepcid 5. She is looking into a sleeve gastrectomy whereby she is elevated risks of BMI over 50. 6. Recommend continued medical supervised weight loss and calorie restriction. Protein intake over 60 g daily advised. Objective - Vital Signs Vital signs: Vital Signs Temp 97.7 F 07/24/20 16:59 Pulse 76 07/24/20 16:59 Resp 18 07/24/20 16:59 BP 120/87 07/24/20 16:59 Pulse Ox Intake & Output 07/23/20 07/24/20 07/24/20 18:59 06:59 18:59 Weight 170.052 kg
== END ==
LOC: BARWHC3 16:53
PROVIDERS: ATTEND Surgery Plastic and Reconstructive Surgery
DX: E66.01 Morbid (severe) obesity due to excess calories (principal); E03.9 Hypothyroidism, unspecified; E55.9 Vitamin D deficiency, unspecified; F32.9 Major depressive disorder, single episode, unspecified; F41.1 Generalized anxiety disorder; G43.909 Migraine, unspecified, not intractable, without status migrainosus; G47.33 Obstructive sleep apnea (adult) (pediatric); I10 Essential (primary) hypertension; J45.909 Unspecified asthma, uncomplicated; K29.50 Unspecified chronic gastritis without bleeding; M17.0 Bilateral primary osteoarthritis of knee; M47.9 Spondylosis, unspecified; R60.9 Edema, unspecified; F43.10 Post-traumatic stress disorder, unspecified; Z68.44 Body mass index [BMI] 60.0-69.9, adult; Z91.030 Bee allergy status; Z91.018 Allergy to other foods
CPT/HCPCS: 99211

== ENCOUNTER → 2020-09-11 | Outpatient (CLI) | payer OTHER ==
[2020-09-11 17:11] VITALS: BP 155/88; PULSE 75; RESP 18; TEMP 98; BMI 63.4
--- NOTE | 2020-09-11 17:24 | P.PN ---
Subjective Progress Note Date: 09/11/20 DATE OF SERVICE: 09/11/2020 CHIEF COMPLAINT: Morbid obesity HISTORY OF PRESENT ILLNESS: Lisseth Mccormack is a 25-year-old female who comes with lifelong morbid obesity. She comes in with continued weight gain over 10 pounds in 2 months. She co-morbidities lower extremity swelling, sleep apnea, hypertension, migraines. She comes in with a new problem of right upper quadrant pain. She has constipation. At height of 5 feet 5.5 inches, her ideal body weight is 149 pounds. Her highest weight is 387 pounds. Her body mass index is 63.6. She comes in ranges 386 pounds from 374 pounds 2 months ago. She has gained 12 pounds in 2 months. Her body mass index is 63.4. She is 237 pounds overweight. PAST MEDICAL HISTORY: 1. Morbid obesity due to excess calories 2. Body mass index of 63.6, initial 3. Osteoarthritis of the knees. 4. Osteoarthritis of the lower back. 5. Asthma 6. Migraines 7. Depressive disorder 8. Generalized anxiety disorder 9. Post traumatic stress disorder (PTSD) 10. Bilateral lower extremity edema PAST SURGICAL HISTORY: 1. Tonsillectomy 2. Adenoidectomy 3. Right wrist surgery 4. [place] tooth extraction HOME MEDICATIONS: Home Medications Medication Instructions Recorded Confirmed Albuterol Sulfate [Ventolin HFA] 2 puff INHALATION RT-QID PRN 03/29/20 09/30/20 EPINEPHrine (Auto Inject) [Epipen] 0.3 mg IM ONCE PRN 03/29/20 09/30/20 acetaZOLAMIDE [Diamox Sequels] 500 mg PO BID 03/29/20 09/30/20 Zonisamide [Zonegran] 200 mg PO HS 04/17/20 09/30/20 Ergocalciferol [Vitamin D2 (1250 50,000 unit PO SA 05/09/20 09/30/20 Mcg = 30881 Iu)] Albuterol Nebulized [Ventolin 2.5 mg INHALATION RT-Q6H PRN 09/12/20 09/30/20 Nebulized] Cholecalciferol [Vitamin D3 (25 25 mcg PO DAILY 09/12/20 09/30/20 Mcg = 1000 Iu)] Hydrocortisone [Cortisone 10%] 1 applic TOPICAL BID PRN 09/12/20 09/30/20 Previous Rx's Medication Instructions Recorded Levothyroxine Sodium [Synthroid] 50 mcg PO DAILY #30 tab 07/24/20 Acetaminophen Tab [Tylenol Tab] 650 mg PO Q4H PRN #30 tablet 09/13/20 Ibuprofen [Motrin] 600 mg PO Q8HR PRN #30 tab 09/13/20 Omeprazole 20 mg PO DAILY #30 tablet. 09/13/20 Simethicone 40 mg/0.6 ml Drops 40 mg PO PCHS PRN #30 ml 09/13/20 [Mylicon Drops] ALLERGIES: Allergies Allergy/AdvReac Type Severity Reaction Status Date / Time bee venom protein (honey bee) Allergy Swelling Verified 09/30/20 10:32 chocolate flavor Allergy Unknown Verified 09/30/20 10:32 melatonin Allergy nausea, Verified 09/30/20 10:32 migraines trazodone Allergy Rash/Hives Verified 09/30/20 10:32 sertraline [From Zoloft] AdvReac HIGH Verified 09/30/20 10:32 ANXIETY ARTIFICIAL SWEETNERS Allergy Unknown Uncoded 09/30/20 10:32 SOCIAL HISTORY: Denies past tobacco use. FAMILY HISTORY: No family history of ulcerative colitis disease or Crohn's disease. Family history of morbid obesity. No lupus in the family. No reports of stomach or esophageal cancer. REVIEW OF ORGAN SYSTEMS: CONSTITUTIONAL: At height of 5 feet 5.5 inches, her ideal body weight is 149 pounds. She comes in 387 pounds. Her body mass index is 63.6. She is 238 pounds overweight. HEENT: Denies any active troubles with vision or hearing. ENDOCRINE: Denies diabetes. Has hypothyroidism. CARDIOVASCULAR: Has past reports of palpitations or heart attacks or chest pain. Has heart murmurs. Has hypertension, untreated. RESPIRATORY: Has asthma. Has sleep apnea, untreated. Has COPD. GASTROINTESTINAL: Denies any bright red blood per rectum. No diarrhea. No constipation. Has gastroesophageal reflux disease. GENITOURINARY: No bladder urgency. No recent blood in urine MUSCULOSKELETAL: Has lower back pain and joint pain. Has osteoarthritis of the knees. History of bilateral lower extremity edema. NEURO: Has headaches. No seizure disorders. PSYCH: Has depression. No suicidal ideation. Has anxiety and post traumatic stress disorder. RHEUMATOLOGIC: No lupus. No rheumatoid arthritis. HEMATOLOGIC: Denies any abnormal bleeding. Has easy bruising. SKIN: No rash. No skin cancer. PHYSICAL EXAM: VITAL SIGNS: Height 5 foot 5.5 inches, weight 386 pounds. BMI 63.4 Vital Signs Temp 98 F 09/11/20 17:03 Pulse 75 09/11/20 17:03 Resp 18 09/11/20 17:03 BP 155/88 09/11/20 17:03 Pulse Ox GENERAL: Well-developed in no acute distress. HEENT: No scleral icterus. Extraocular movements grossly intact. Hears conversational speech. No nasal drainage. NECK: Supple without lymphadenopathy. CHEST: Nonlabored respirations with equal bilateral excursions. CARDIOVASCULAR: Regular rate and regular rhythm. Distal 2+ pulses. ABDOMEN: Obese, soft, nontender, nondistended. MUSCULOSKELETAL: No clubbing, cyanosis. NEURO: No focal or lateralizing signs. Cranial nerves 2 through 12 grossly within normal limits. PSYCH: Appropriate affect. Alert and oriented to person, place and time. SKIN: Good skin turgor. Well perfused. LABS: WBC elevated over 10, iron low 45, vitamin D low 14.5, TSH elevated at 6.6 ASSESSMENT: 1. Morbid obesity due to excess calories 2. Body mass index of 63.6, initial to 63.4 3. Osteoarthritis of the knees. 4. Osteoarthritis of the lower back. 5. Asthma 6. Migraines 7. Depressive disorder 8. Generalized anxiety disorder 9. Post traumatic stress disorder (PTSD) 10. Bilateral lower extremity edema 11. Chronic gastritis 12. Obstructive sleep apnea 13. Hypothyroidism 14. Right upper quadrant abdominal pain 15. Cholecystitis PLAN: 1. She comes in with right upper quadrant pain. Recommend ultrasound of the gallbladder advised. 2. Recommend HIDA scan for cholecystitis. Objective - Vital Signs Vital signs: Vital Signs Temp 98 F 09/11/20 17:03 Pulse 75 09/11/20 17:03 Resp 18 09/11/20 17:03 BP 155/88 09/11/20 17:03 Pulse Ox Intake & Output 09/10/20 09/11/20 09/11/20 18:59 06:59 18:59 Weight 175.54 kg
== END ==
LOC: BARWHC3 16:14
PROVIDERS: ATTEND Surgery Plastic and Reconstructive Surgery
DX: E66.01 Morbid (severe) obesity due to excess calories (principal); M17.0 Bilateral primary osteoarthritis of knee; M47.816 Spondylosis without myelopathy or radiculopathy, lumbar region; J45.909 Unspecified asthma, uncomplicated; G43.909 Migraine, unspecified, not intractable, without status migrainosus; F32.9 Major depressive disorder, single episode, unspecified; F41.1 Generalized anxiety disorder; F43.10 Post-traumatic stress disorder, unspecified; R60.9 Edema, unspecified; K29.50 Unspecified chronic gastritis without bleeding; G47.33 Obstructive sleep apnea (adult) (pediatric); E03.9 Hypothyroidism, unspecified; K81.9 Cholecystitis, unspecified; Z68.44 Body mass index [BMI] 60.0-69.9, adult; Z79.899 Other long term (current) drug therapy; Z79.890 Hormone replacement therapy; Z79.1 Long term (current) use of non-steroidal anti-inflammatories (NSAID); Z91.030 Bee allergy status; Z88.8 Allergy status to other drugs, medicaments and biological substances; Z91.02 Food additives allergy status
CPT/HCPCS: 99211

== ENCOUNTER 2020-09-12 08:28 | Observation (INO) | payer OTHER ==
[~2020-09-12 08:28] MED LIST changes: -LACTATED RINGERS 1,000 ML IV SCH; +ceFAZolin 3 GM in SODIUM CHLORIDE 0.9% 100 ML IVPB PRN
--- NOTE | 2020-09-12 09:34 | ED ---
Abdominal Pain HPI - General Chief Complaint: Abdominal Pain Stated Complaint: Gallbladder pain Time Seen by Provider: 09/12/20 08:35 Source: patient Mode of arrival: ambulatory Limitations: no limitations - History of Present Illness Initial Comments: 25-year-old female with history of biliary colic presents to the emergency department with a chief complaint of abdominal pain. Patient reports she has seen Dr. Mckeon for her gallbladder related problems. The surgeon advised her to come to the emergency department and be admitted. Patient reports the pain is 6/10, sharp at this time. She does report some nausea but denies any vomiting. States she does not want any analgesia. She denies any diarrhea or constipation. Ports the pain is only located in right upper quadrant with some radiation to the shoulder. Denies urinary or vaginal symptoms. - Related Data Home Medications Medication Instructions Recorded Confirmed Albuterol Sulfate [Ventolin HFA] 2 puff INHALATION RT-QID PRN 03/29/20 09/11/20 EPINEPHrine (Auto Inject) [Epipen] 0.3 mg IM ONCE PRN 03/29/20 09/11/20 acetaZOLAMIDE [Diamox Sequels] 500 mg PO BID 03/29/20 09/11/20 Zonisamide [Zonegran] 200 mg PO HS 04/17/20 09/11/20 Ergocalciferol [Vitamin D2 (1250 50,000 unit PO SA 05/09/20 09/11/20 Mcg = 65564 Iu)] Albuterol Nebulized [Ventolin 2.5 mg INHALATION RT-Q6H PRN 09/12/20 09/12/20 Nebulized] Cholecalciferol [Vitamin D3 (25 25 mcg PO DAILY 09/12/20 09/12/20 Mcg = 1000 Iu)] Hydrocortisone [Cortisone 10%] 1 applic TOPICAL BID PRN 09/12/20 09/12/20 Ibuprofen [Motrin Ib] 400 mg PO Q6H PRN 09/12/20 09/12/20 Previous Rx's Medication Instructions Recorded Levothyroxine Sodium [Synthroid] 50 mcg PO DAILY #30 tab 07/24/20 Allergies Allergy/AdvReac Type Severity Reaction Status Date / Time bee venom protein (honey bee) Allergy Swelling Verified 09/12/20 11:23 chocolate flavor Allergy Unknown Verified 09/12/20 11:23 melatonin Allergy nausea, Verified 09/12/20 11:23 migraines trazodone Allergy Rash/Hives Verified 09/12/20 11:23 sertraline [From Zoloft] AdvReac HIGH Verified 09/12/20 11:23 ANXIETY ARTIFICIAL SWEETNERS Allergy Unknown Uncoded 09/12/20 08:30 Review of Systems ROS Statement: Those systems with pertinent positive or pertinent negative responses have been documented in the HPI. ROS Other: All systems not noted in ROS Statement are negative. Past Medical History Past Medical History: Asthma, GERD/Reflux Additional Past Medical History / Comment(s): heart murmur- "Heart skips a beat" chronic migraines, constipation, yeast rash abdominal fold, History of Any Multi-Drug Resistant Organisms: None Reported Past Surgical History: Adenoidectomy, Orthopedic Surgery, Tonsillectomy Additional Past Surgical History / Comment(s): rt wrist surgery for torn ligament; wisdom teeth Past Anesthesia/Blood Transfusion Reactions: No Reported Reaction Past Psychological History: Anxiety, Depression, PTSD Smoking Status: Never smoker Past Alcohol Use History: None Reported Past Drug Use History: None Reported - Past Family History Mother Family Medical History: Cancer General Exam Limitations: no limitations General appearance: alert, in no apparent distress, obese Head exam: Present: atraumatic, normocephalic, normal inspection Eye exam: Present: normal appearance, PERRL, EOMI Pupils: Present: normal accommodation ENT exam: Present: normal exam, normal oropharynx, mucous membranes moist Neck exam: Present: normal inspection, full ROM. Absent: tenderness, lymphadenopathy Respiratory exam: Present: normal lung sounds bilaterally. Absent: respiratory distress Cardiovascular Exam: Present: regular rate, normal rhythm, normal heart sounds. Absent: systolic murmur GI/Abdominal exam: Present: soft, tenderness (Positive Youngblood's sign). Absent: distended, guarding, rebound, rigid Extremities exam: Present: normal inspection, full ROM Back exam: Present: normal inspection Neurological exam: Present: alert, oriented X3, CN II-XII intact Psychiatric exam: Present: normal affect, normal mood Skin exam: Present: warm, dry, intact, normal color. Absent: rash Course Vital Signs 09/12/20 09/12/20 08:30 10:28 Temperature 98.1 F 98.1 F Pulse Rate 64 97 Respiratory 16 18 Rate Blood Pressure 134/82 121/77 O2 Sat by Pulse 100 98 Oximetry Medical Decision Making - Medical Decision Making 25-year-old female with history of biliary colic presents to the emergency department with a chief complaint of abdominal pain. On physical examination, positive Youngblood sign. Laboratory work shows mild transaminitis. Right upper quadrant ultrasound shows biliary duct is on the upper limits of normal. No gallstones or sludge. I spoke with Dr. Rutherford who will admit the patient for further medical management. Case discussed with - Lab Data Result diagrams: 09/12/20 09:22 09/12/20 09:22 Lab Results 09/12/20 09/12/20 09/12/20 Range/Units 09:22 09:22 09:22 WBC 9.2 (3.8-10.6) k/uL RBC 4.32 (3.80-5.40) m/uL Hgb 13.0 (11.4-16.0) gm/dL Hct 38.5 (34.0-46.0) % MCV 89.0 (80.0-100.0) fL MCH 30.2 (25.0-35.0) pg MCHC 33.9 (31.0-37.0) g/dL RDW 13.1 (11.5-15.5) % Plt Count 312 (150-450) k/uL MPV 6.6 Neutrophils % 68 % Lymphocytes % 23 % Monocytes % 6 % Eosinophils % 1 % Basophils % 0 % Neutrophils # 6.3 (1.3-7.7) k/uL Lymphocytes # 2.1 (1.0-4.8) k/uL Monocytes # 0.5 (0-1.0) k/uL Eosinophils # 0.1 (0-0.7) k/uL Basophils # 0.0 (0-0.2) k/uL Sodium 140 (137-145) mmol/L Potassium 4.7 (3.5-5.1) mmol/L Chloride 107 (98-107) mmol/L Carbon Dioxide 28 (22-30) mmol/L Anion Gap 5 mmol/L BUN 16 (7-17) mg/dL Creatinine 0.77 (0.52-1.04) mg/dL Est GFR (CKD-EPI)AfAm >90 (>60 ml/min/1.73 sqM) Est GFR (CKD-EPI)NonAf >90 (>60 ml/min/1.73 sqM) Glucose 103 H (74-99) mg/dL Calcium 9.3 (8.4-10.2) mg/dL Total Bilirubin 0.3 (0.2-1.3) mg/dL AST 44 H (14-36) U/L ALT 83 H (4-34) U/L Alkaline Phosphatase 83 (38-126) U/L Total Protein 6.4 (6.3-8.2) g/dL Albumin 3.7 (3.5-5.0) g/dL Amylase 45 (30-110) U/L Lipase 53 (23-300) U/L Urine Color Yellow Urine Appearance Cloudy H (Clear) Urine pH 5.5 (5.0-8.0) Ur Specific [place] 1.019 (1.001-1.035) Urine Protein Negative (Negative) Urine Glucose (UA) Negative (Negative) Urine Ketones Negative (Negative) Urine Blood Negative (Negative) Urine Nitrite Negative (Negative) Urine Bilirubin Negative (Negative) Urine Urobilinogen <2.0 (<2.0) mg/dL Ur Leukocyte Esterase Trace H (Negative) Urine RBC <1 (0-5) /hpf Urine WBC 2 (0-5) /hpf Ur Squamous Epith Cells 6 H (0-4) /hpf Urine Mucus Rare H (None) /hpf Urine HCG, Qual (Not Detectd) 09/12/20 Range/Units 09:22 WBC (3.8-10.6) k/uL RBC (3.80-5.40) m/uL Hgb (11.4-16.0) gm/dL Hct (34.0-46.0) % MCV (80.0-100.0) fL MCH (25.0-35.0) pg MCHC (31.0-37.0) g/dL RDW (11.5-15.5) % Plt Count (150-450) k/uL MPV Neutrophils % % Lymphocytes % % Monocytes % % Eosinophils % % Basophils % % Neutrophils # (1.3-7.7) k/uL Lymphocytes # (1.0-4.8) k/uL Monocytes # (0-1.0) k/uL Eosinophils # (0-0.7) k/uL Basophils # (0-0.2) k/uL Sodium (137-145) mmol/L Potassium (3.5-5.1) mmol/L Chloride (98-107) mmol/L Carbon Dioxide (22-30) mmol/L Anion Gap mmol/L BUN (7-17) mg/dL Creatinine (0.52-1.04) mg/dL Est GFR (CKD-EPI)AfAm (>60 ml/min/1.73 sqM) Est GFR (CKD-EPI)NonAf (>60 ml/min/1.73 sqM) Glucose (74-99) mg/dL Calcium (8.4-10.2) mg/dL Total Bilirubin (0.2-1.3) mg/dL AST (14-36) U/L ALT (4-34) U/L Alkaline Phosphatase (38-126) U/L Total Protein (6.3-8.2) g/dL Albumin (3.5-5.0) g/dL Amylase (30-110) U/L Lipase (23-300) U/L Urine Color Urine Appearance (Clear) Urine pH (5.0-8.0) Ur Specific [place] (1.001-1.035) Urine Protein (Negative) Urine Glucose (UA) (Negative) Urine Ketones (Negative) Urine Blood (Negative) Urine Nitrite (Negative) Urine Bilirubin (Negative) Urine Urobilinogen (<2.0) mg/dL Ur Leukocyte Esterase (Negative) Urine RBC (0-5) /hpf Urine WBC (0-5) /hpf Ur Squamous Epith Cells (0-4) /hpf Urine Mucus (None) /hpf Urine HCG, Qual Not Detected (Not Detectd) Disposition Clinical Impression: Biliary colic Disposition: ADMITTED IP TO THIS [facility] Condition: Stable Is patient prescribed a controlled substance at d/c from ED?: No Referrals: Jerry Manrique MD [Primary Care Provider] - 1-2 days Time of Disposition: 11:27
[2020-09-12 09:45] LABS: Basophils % (A) 0 %; Eosinophils # (A) 0.1 k/uL (0-0.7); Eosinophils % (A) 1 %; HCT 38.5 % (34.0-46.0); Lymphocytes # (A) 2.1 k/uL (1.0-4.8); Lymphocytes % (A) 23 %; MCH 30.2 pg (25.0-35.0); MCHC 33.9 g/dL (31.0-37.0); Mean Platelet Volume 6.6; Monocytes # (A) 0.5 k/uL (0-1.0); Monocytes % (A) 6 %; Neutrophils # (A) 6.3 k/uL (1.3-7.7); Neutrophils % (A) 68 %; Platelet Count 312 k/uL (150-450); RBC 4.32 m/uL (3.80-5.40); RDW 13.1 % (11.5-15.5); WBC 9.2 k/uL (3.8-10.6)
[2020-09-12 09:56] LABS: Appearance,Urine Cloudy (Clear); Bilirubin,Urine Negative (Negative); Blood,Urine Negative (Negative); Color,Urine Yellow; Glucose,Urine (UA) Negative (Negative); Ketones,Urine Negative (Negative); Leukocyte Esterase,Urine Trace (Negative); Mucus,Urine Rare /hpf; Nitrite,Urine Negative (Negative); PH, Urine 5.5 (5.0-8.0); Protein,Urine Negative (Negative); RBC,Urine <1 /hpf (0-5); Specific Gravity,Urine 1.019 (1.001-1.035); Squamous Epithelial Cell,Urine 6 /hpf (0-4); Urobilinogen,Urine <2.0 mg/dL (<2.0); WBC,Urine 2 /hpf (0-5)
[2020-09-12 10:00] LABS: ALT 83 U/L (4-34); AST 44 U/L (14-36); African American GFR (CKD) >90 (>60 ml/min/1.73 sqM); Albumin 3.7 g/dL (3.5-5.0); Alkaline Phosphatase 83 U/L (38-126); Amylase 45 U/L (30-110); Anion Gap 5 mmol/L; Blood Urea Nitrogen 16 mg/dL (7-17); Calcium 9.3 mg/dL (8.4-10.2); Carbon Dioxide 28 mmol/L (22-30); Chloride 107 mmol/L (98-107); Glucose 103 mg/dL (74-99); Lipase 53 U/L (23-300); Non-African American GFR(CKD) >90 (>60 ml/min/1.73 sqM); Potassium 4.7 mmol/L (3.5-5.1); Sodium 140 mmol/L (137-145); Total Bilirubin 0.3 mg/dL (0.2-1.3); Total Protein 6.4 g/dL (6.3-8.2)
[2020-09-12] MEDS ORDERED: ENOXAPARIN 40 MG/0.4 ML SYRINGE SQ PRN (10:08)
--- NOTE | 2020-09-12 11:12 | US ---
EXAMINATION TYPE: US gallbladder DATE OF EXAM: 09/12/2020 COMPARISON: NONE CLINICAL HISTORY: + Youngblood. RUQ pain ongoing, large body habitus EXAM MEASUREMENTS: Liver Length: 21.6 cm Gallbladder Wall: 2.8 mm CBD: 0.6 cm this is at the upper limits of normal. Right Kidney: 11.4 x 4.2 x 5.0 cm Pancreas: limited views appear wnl Liver: enlarged and difficult to penetrate. Hepatic steatosis. No discrete hepatic mass or intrahepa tic biliary dilatation is seen. Gallbladder: wnl Evidence for sonographic Youngblood's sign: yes CBD: wnl Right Kidney: limited views appear wnl IMPRESSION: 1. Hepatomegaly and hepatic steatosis. 2. Limited visualization of the pancreas and right kidney. 3. No gallstones, sludge, or pericholecystic fluid. Common duct measures up to 6 mm, which is at the upper limits of normal. The sonographic Youngblood's sign is positive per ep technologist. Surgic al clinical evaluation is recommended. No evidence of cholecystitis on the sonographic study.
[2020-09-12] MEDS ORDERED: NALOXONE 0.4 MG/ML 1 ML VIAL IV PRN (11:23)
--- NOTE | 2020-09-12 12:31 | P.GSHP ---
History of Present Illness H&P Date: 09/12/20 CHIEF COMPLAINT: Cholecystitis HISTORY OF PRESENT ILLNESS: The patient is a 25-year-old female who presents with 2 day history of severe right upper quadrant abdominal pain radiated to the right upper back. She reports her symptoms are worse after eating fatty greasy foods. She also has family history of gallbladder disease. She's had additional workup including CT of the abdomen pelvis at outside facility. She presented to the emergency room as her symptom is intolerable. She is admitted for cholecystitis. PAST MEDICAL HISTORY: Please see list PAST SURGICAL HISTORY: Please see list MEDICATIONS: Please see list ALLERGIES: Please see list SOCIAL HISTORY: Please see list FAMILY HISTORY: Please see list REVIEW OF ORGAN SYSTEMS: CONSTITUTIONAL: No reports of fevers or chills. HEENT: Denies any troubles with the vision or hearing. ENDOCRINE: Has hypothyroidism. No diabetes. RESPIRATORY: No recent pneumonias. Has chronic obstructive pulmonary disease CARDIOVASCULAR: Denies chest pain or palpitations GI: No blood in stools or constipation. MUSCULOSKELETAL: Has occasional joint pain including back pain. NEURO: No seizure disorders or headaches. No recent stroke. PSYCH: No suicidal ideation. Has anxiety disorder including depressive disorder. GENITOURINARY: No active blood in urine. No urinary hesitancy. HEMATOLOGIC: No personal or family history of DVTs or pulmonary emboli. SKIN: No skin cancer. PHYSICAL EXAM: VITAL SIGNS: Afebrile vital signs stable GENERAL: Well-developed pleasant in no acute distress. HEENT: No scleral icterus. Extraocular movements grossly intact. Moist buccal mucosa. NECK: Supple without lymphadenopathy. CHEST: Unlabored respirations. Equal bilateral excursions. CARDIOVASCULAR: Regular rate regular rhythm rhythm. Distal 2+ pulses. ABDOMEN: Soft, nondistended. Tender along the epigastrium and right upper quadrant. MUSCULOSKELETAL: No clubbing, cyanosis, or edema. NEURO: Cranial nerves II to XII within normal limits. No focal or lateralizing signs. PSYCH: Alert and oriented to person, place and time. SKIN: Well-perfused good skin turgor. LABS: Reviewed with elevated AST ALT. STUDIES: Ultrasound of the gallbladder independently reviewed without large gallstones. Poor penetration of the liver consistent with fatty liver disease. ASSESSMENT: 1. Epigastric and right upper quadrant abdominal pain 2. Ccholecystitis PLAN: 1. Will need a robotic cholecystectomy possible open. Benefits and risks were described. 2. Heparin for DVT prophylaxis 5000 units. 3. Antibiotic prophylaxis. Past Medical History Past Medical History: Asthma, GERD/Reflux Additional Past Medical History / Comment(s): heart murmur- "Heart skips a beat" chronic migraines, constipation, yeast rash abdominal fold, History of Any Multi-Drug Resistant Organisms: None Reported Past Surgical History: Adenoidectomy, Orthopedic Surgery, Tonsillectomy Additional Past Surgical History / Comment(s): rt wrist surgery for torn ligament; wisdom teeth Past Anesthesia/Blood Transfusion Reactions: No Reported Reaction Past Psychological History: Anxiety, Depression, PTSD Smoking Status: Never smoker Past Alcohol Use History: None Reported Past Drug Use History: None Reported - Past Family History Mother Family Medical History: Cancer Medications and Allergies Home Medications Medication Instructions Recorded Confirmed Type Albuterol Sulfate [Ventolin HFA] 2 puff INHALATION RT-QID PRN 03/29/20 09/12/20 History EPINEPHrine (Auto Inject) [Epipen] 0.3 mg IM ONCE PRN 03/29/20 09/12/20 History acetaZOLAMIDE [Diamox Sequels] 500 mg PO BID 03/29/20 09/12/20 History Zonisamide [Zonegran] 200 mg PO HS 04/17/20 09/12/20 History Ergocalciferol [Vitamin D2 (1250 50,000 unit PO SA 05/09/20 09/12/20 History Mcg = 94846 Iu)] Levothyroxine Sodium [Synthroid] 50 mcg PO DAILY #30 tab 07/24/20 09/12/20 Rx Albuterol Nebulized [Ventolin 2.5 mg INHALATION RT-Q6H PRN 09/12/20 09/12/20 History Nebulized] Cholecalciferol [Vitamin D3 (25 25 mcg PO DAILY 09/12/20 09/12/20 History Mcg = 1000 Iu)] Hydrocortisone [Cortisone 10%] 1 applic TOPICAL BID PRN 09/12/20 09/12/20 History Ibuprofen [Motrin Ib] 400 mg PO Q6H PRN 09/12/20 09/12/20 History Allergies Allergy/AdvReac Type Severity Reaction Status Date / Time bee venom protein (honey bee) Allergy Swelling Verified 09/12/20 11:23 chocolate flavor Allergy Unknown Verified 09/12/20 11:23 melatonin Allergy nausea, Verified 09/12/20 11:23 migraines trazodone Allergy Rash/Hives Verified 09/12/20 11:23 sertraline [From Zoloft] AdvReac HIGH Verified 09/12/20 11:23 ANXIETY ARTIFICIAL SWEETNERS Allergy Unknown Uncoded 09/12/20 08:30 Surgical - Exam Vital Signs Temp Pulse Resp BP Pulse Ox 98.1 F 64 16 134/82 100 09/12/20 08:30 09/12/20 08:30 09/12/20 08:30 09/12/20 08:30 09/12/20 08:30 Results - Labs 09/12/20 09:22 09/12/20 09:22 Abnormal Lab Results - Last 24 Hours (Table) 09/12/20 09/12/20 Range/Units 09:22 09:22 Glucose 103 H (74-99) mg/dL AST 44 H (14-36) U/L ALT 83 H (4-34) U/L Urine Appearance Cloudy H (Clear) Ur Leukocyte Esterase Trace H (Negative) Ur Squamous Epith Cells 6 H (0-4) /hpf Urine Mucus Rare H (None) /hpf Diabetes panel 09/12/20 Range/Units 09:22 Sodium 140 (137-145) mmol/L Potassium 4.7 (3.5-5.1) mmol/L Chloride 107 (98-107) mmol/L Carbon Dioxide 28 (22-30) mmol/L BUN 16 (7-17) mg/dL Creatinine 0.77 (0.52-1.04) mg/dL Glucose 103 H (74-99) mg/dL Calcium 9.3 (8.4-10.2) mg/dL AST 44 H (14-36) U/L ALT 83 H (4-34) U/L Alkaline Phosphatase 83 (38-126) U/L Total Protein 6.4 (6.3-8.2) g/dL Albumin 3.7 (3.5-5.0) g/dL Calcium panel 09/12/20 Range/Units 09:22 Calcium 9.3 (8.4-10.2) mg/dL Albumin 3.7 (3.5-5.0) g/dL Pituitary panel 09/12/20 Range/Units 09:22 Sodium 140 (137-145) mmol/L Potassium 4.7 (3.5-5.1) mmol/L Chloride 107 (98-107) mmol/L Carbon Dioxide 28 (22-30) mmol/L BUN 16 (7-17) mg/dL Creatinine 0.77 (0.52-1.04) mg/dL Glucose 103 H (74-99) mg/dL Calcium 9.3 (8.4-10.2) mg/dL Adrenal panel 09/12/20 Range/Units 09:22 Sodium 140 (137-145) mmol/L Potassium 4.7 (3.5-5.1) mmol/L Chloride 107 (98-107) mmol/L Carbon Dioxide 28 (22-30) mmol/L BUN 16 (7-17) mg/dL Creatinine 0.77 (0.52-1.04) mg/dL Glucose 103 H (74-99) mg/dL Calcium 9.3 (8.4-10.2) mg/dL Total Bilirubin 0.3 (0.2-1.3) mg/dL AST 44 H (14-36) U/L ALT 83 H (4-34) U/L Alkaline Phosphatase 83 (38-126) U/L Total Protein 6.4 (6.3-8.2) g/dL Albumin 3.7 (3.5-5.0) g/dL
[2020-09-12] MEDS ORDERED: MELOXICAM 7.5 MG TAB PO PRN (12:32)
[2020-09-12] MEDS ORDERED: GABAPENTIN 300 MG CAP PO PRN (12:32)
[2020-09-12] MEDS ORDERED: ACETAMINOPHEN TAB 500 MG TAB PO PRN (12:32)
[2020-09-12] MEDS ORDERED: SCOPOLAMINE 1.5MG/72HR PATCH TRANSDERM PRN (12:32)
[2020-09-12] MEDS ORDERED: IV FLUID CONTINUATION 900 ML IV ONE (13:16)
[2020-09-12] MEDS ORDERED: ONDANSETRON 4 MG/2 ML VIAL ONE (14:01)
[2020-09-12] MEDS ORDERED: ONDANSETRON 4 MG/2 ML VIAL IVP ONE (14:06)
[2020-09-12] MEDS ORDERED: DEXAMETHASONE SOD PHOSPHATE 4 MG/ML 1 ML VIAL IVP ONE (14:06)
[2020-09-12] MEDS ORDERED: MIDAZOLAM 2 MG/2 ML VIAL IVP ONE (14:07)
[2020-09-12] MEDS ORDERED: SUCCINYLCHOLINE CHLORIDE VIAL 200 MG/10 ML VIAL IV ONE (14:24)
[2020-09-12] MEDS ORDERED: NEOSTIGMINE 1 MG/ML 10 ML VIAL ONE (14:24)
[2020-09-12] MEDS ORDERED: PROPOFOL 10 MG/ML 20 ML VIAL IV ONE (14:24)
[2020-09-12] MEDS ORDERED: ROCURONIUM 10 MG/ML (5 ML VIAL) IV ONE (14:24)
[2020-09-12] MEDS ORDERED: LIDOCAINE 1% INJ 10MG/ML (20 ML MDV) ONE (14:24)
[2020-09-12] MEDS ORDERED: MIDAZOLAM 2 MG/2 ML VIAL ONE (14:24)
[2020-09-12] MEDS ORDERED: fentaNYL (PF) 50 MCG/ML 2 ML AMP ONE (14:24)
[2020-09-12] MEDS ORDERED: INDOCYANINE GREEN 25 MG VIAL IV ONE (14:24)
[2020-09-12] MEDS ORDERED: GLYCOPYRROLATE 0.2 MG/ML 2 ML VIAL ONE (14:24)
[2020-09-12] MEDS ORDERED: INDOCYANINE GREEN 25 MG VIAL IV STA (14:29)
[2020-09-12] MEDS ORDERED: BUPIVACAINE (PF) 0.5% 30 ML VIAL SQ ONE ×2 (14:54→15:00)
[2020-09-12] MEDS ORDERED: LACTATED RINGERS 1,000 ML IV ONE (15:45)
[2020-09-12] MEDS ORDERED: HYDROmorphone 0.5 MG/0.5 ML SYRINGE IVP PRN (15:52)
[2020-09-12] MEDS ORDERED: ONDANSETRON 4 MG/2 ML VIAL IVP PRN (15:52)
[2020-09-12] MEDS ORDERED: METOCLOPRAMIDE 5 MG/ML 2 ML VIAL IVP PRN (15:52)
[2020-09-12] MEDS ORDERED: HYDROmorphone 0.5 MG/0.5 ML SYRINGE IVP ONE (16:15)
[2020-09-12] MEDS: ACETAMINOPHEN TAB 500 MG TAB PO SCH ×2 (18:12→23:47)
[2020-09-12] MEDS: KETOROLAC 15 MG/ML 1 ML VIAL IVP SCH ×2 (18:13→23:48)
[2020-09-12] MEDS ORDERED: SODIUM CHLORIDE 0.9% 1,000 ML IV ONE (19:06)
--- NOTE | 2020-09-12 19:13 | P.OP ---
Date of Procedure: 09/12/20 Description of Procedure: SURGEON: VINICIO VELEZ MD PREOPERATIVE DIAGNOSES: 1. Cholecystitis 2. Right upper quadrant peritonitis 3. Morbid obesity due to excess calories, BMI 66.8 4. Hypothyroidism 5. Hypertensive heart disease 6. Chronic obstructive lung disease due to asthma 7. Gastroesophageal reflux disease 8. Generalized anxiety disorder 9. Depressive disorder 10. Chronic migraines 11. Post traumatic stress disorder 12. Splenomegaly POSTOPERATIVE DIAGNOSES: 1. Cholecystitis 2. Right upper quadrant peritonitis 3. Morbid obesity due to excess calories, BMI 66.8 4. Hypothyroidism 5. Hypertensive heart disease 6. Chronic obstructive lung disease due to asthma 7. Gastroesophageal reflux disease 8. Generalized anxiety disorder 9. Depressive disorder 10. Chronic migraines 11. Post traumatic stress disorder 12. Splenomegaly 13. Severe hepatomegaly with fatty liver disease OPERATION: 1. Robotic-assisted da Lenny Xi laparoscopic cholecystectomy, multiport with FIREFLY ESTIMATED BLOOD LOSS: 5 mL. SPECIMENS REMOVED: Gallbladder. COMPLICATIONS: None. OPERATIVE FINDINGS: 1. Peritoneal adhesions with scarring over infundibulum of the gallbladder with cholecystitis INDICATIONS: The patient is a 25-year-old female who presents with cholecystitis on right upper quadrant peritonitis over 2 days. Robotic assisted laparoscopic approach was described. Benefits and risks of the procedure including but not limited to bleeding, infection, injury to the biliary tree was described. Informed consent was obtained. DESCRIPTION OF PROCEDURE: Patient was brought to the operating room, placed in supine position. After general induction, the abdomen had been prepped and draped in standard sterile fashion. The robotic da Lenny XI system was primed. After a timeout protocol was performed, the patient had been prepped and draped in standard sterile fashion. The patient was injected with indocyanine green. A 5 mm 0 degrees laparoscopic trocar entry was performed along the left upper quadrant. The abdomen insufflated to 15 mmHg pressure which was tolerated well. Diagnostic laparoscopy demonstrated no injury to bowel viscera or mesentery. The liver surface was remarkable for fatty liver disease and moderate hepatomegaly. Next, two 8 mm robotic ports were placed along the right upper abdomen. The camera 8-mm port was maintained along the epigastrium. Another 8 mm port was placed along the left upper abdominal wall after exchanging the 5 mm port. Please note that the ports were placed at least 10 to 15 cm away from the target anatomy of the gallbladder. The robot was docked along the left lateral abdomen. The patient was repositioned in reverse Trendelenburg position. Using a grasper for arm 3, a grasper for arm 4, including hook cautery for arm 1, the robotic system was docked and primed as described. Instruments were interchanged by the assistant softball coach including hook cautery, Bovie cautery and clip appliers. I had sat at the console. The gallbladder was scarred with peritoneal adhesions at the infundibulum. Lysis of adhesions was performed to free the gallbladder from the surrounding tissues. Next attention was brought to the infundibulum and cystic structures. The infundibulum and cystic duct were dissected free from surrounding tissues. The cystic duct was isolated. FIREFLY was used to identify the cystic artery and cystic structures. A critical view of safety was obtained. Large PLASTIC clips were used throughout the entire case. Using a clip charge entry specialist, 2 clips were placed at the junction of the infundibulum and cystic duct. The cystic duct was divided between clips. Next, the cystic artery was similarly clipped and cauterized. Electro-Bovie cautery was used to remove the gallbladder from the hepatic fossa. Hemostasis was checked and found to be adequate. The robot was undocked. I re-scrubbed into the case. Using a 10 mm Endo Catch bag via the left upper quadrant incision, the specimen was removed from the abdominal cavity. All pneumoperitoneum instruments were evacuated from the abdominal cavity. The incisions were reapproximated using 4-0 Monocryl in an interrupted subcuticular fashion. Fascial defects were less than 8 mm in size. Please note along the trocar sites, local anesthetic was placed as a field block prior to insertion of all instruments. Liquid glue was applied to the skin. At the end of the procedure needle, sponge, and instrument count had been verified correct by the surgical elastic knitter. The patient was transferred to postanesthesia care unit in stable condition. Intraoperative films were shared with the patient's family.
[2020-09-12] MEDS: SODIUM CHLORIDE 0.9% 1,000 ML IV SCH (19:42)
[2020-09-13 01:46] VITALS: RESP 18
[2020-09-13] MEDS: SODIUM CHLORIDE 0.9% 1,000 ML IV SCH ×2 (03:09→09:25)
[2020-09-13] MEDS: KETOROLAC 15 MG/ML 1 ML VIAL IVP SCH ×2 (05:37→11:30)
[2020-09-13] MEDS: ACETAMINOPHEN TAB 500 MG TAB PO SCH ×2 (05:38→11:30)
[2020-09-13 08:59] VITALS: BP 102/63; PULSE 82; TEMP 98.6
--- NOTE | 2020-09-13 11:28 | P.DS ---
<Oriana Birto - Last Filed: 09/13/20 11:21> Providers Expected date of discharge: 09/13/20 Hospital Course: Discharge diagnosis 1. Cholecystitis status post robotic-assisted da Lenny Xi laparoscopic cholecystectomy 2. Right upper quadrant peritonitis 3. Morbid obesity due to excess calories, BMI 66.8 4. Hypothyroidism 5. Hypertensive heart disease 6. Chronic obstructive lung disease due to asthma 7. Gastroesophageal reflux disease 8. Generalized anxiety disorder 9. Depressive disorder 10. Chronic migraines 11. Post traumatic stress disorder 12. Splenomegaly 13. Severe hepatomegaly with fatty liver disease Hospital course The patient is a 25-year-old female who presents with 2 day history of severe right upper quadrant abdominal pain radiated to the right upper back. She reports her symptoms are worse after eating fatty greasy foods. She also has family history of gallbladder disease. She's had additional workup including CT of the abdomen pelvis at outside facility. She presented to the emergency room as her symptom is intolerable. She is admitted for cholecystitis. Patient is status post robotic-assisted da Lenny Xi laparoscopic cholecystectomy. Her pain is controlled. She denies any nausea or vomiting. She tolerated diet. She is afebrile. She has been up and ambulating. She is having flatus. She is stable for discharge. Physician Retail Selling Floor Leader note has been reviewed by physician. Signing provider agrees with the documented findings, assessment, and plan of care. Patient Condition at Discharge: Stable Plan - Discharge Summary Discharge Rx Participant: No New Discharge Prescriptions: New Ibuprofen [Motrin] 600 mg PO Q8HR PRN #30 tab PRN Reason: Pain Simethicone 40 mg/0.6 ml Drops [Mylicon Drops] 40 mg PO PCHS PRN #30 ml PRN Reason: gas Acetaminophen Tab [Tylenol Tab] 650 mg PO Q4H PRN #30 tablet PRN Reason: Pain Omeprazole 20 mg PO DAILY #30 tablet.dr Continue acetaZOLAMIDE [Diamox Sequels] 500 mg PO BID EPINEPHrine (Auto Inject) [Epipen] 0.3 mg IM ONCE PRN PRN Reason: Anaphylaxis Albuterol Sulfate [Ventolin HFA] 2 puff INHALATION RT-QID PRN PRN Reason: Shortness Of Breath Zonisamide [Zonegran] 200 mg PO HS Ergocalciferol [Vitamin D2 (1250 Mcg = 73296 Iu)] 50,000 unit PO SA Levothyroxine Sodium [Synthroid] 50 mcg PO DAILY #30 tab Cholecalciferol [Vitamin D3 (25 Mcg = 1000 Iu)] 25 mcg PO DAILY Hydrocortisone [Cortisone 10%] 1 applic TOPICAL BID PRN PRN Reason: Rash Albuterol Nebulized [Ventolin Nebulized] 2.5 mg INHALATION RT-Q6H PRN PRN Reason: Shortness Of Breath Discontinued Ibuprofen [Motrin Ib] 400 mg PO Q6H PRN PRN Reason: Pain Discharge Medication List Albuterol Sulfate [Ventolin HFA] 2 puff INHALATION RT-QID PRN 03/29/20 [History] EPINEPHrine (Auto Inject) [Epipen] 0.3 mg IM ONCE PRN 03/29/20 [History] acetaZOLAMIDE [Diamox Sequels] 500 mg PO BID 03/29/20 [History] Zonisamide [Zonegran] 200 mg PO HS 04/17/20 [History] Ergocalciferol [Vitamin D2 (1250 Mcg = 42592 Iu)] 50,000 unit PO SA 05/09/20 [History] Levothyroxine Sodium [Synthroid] 50 mcg PO DAILY #30 tab 07/24/20 [Rx] Albuterol Nebulized [Ventolin Nebulized] 2.5 mg INHALATION RT-Q6H PRN 09/12/20 [History] Cholecalciferol [Vitamin D3 (25 Mcg = 1000 Iu)] 25 mcg PO DAILY 09/12/20 [History] Hydrocortisone [Cortisone 10%] 1 applic TOPICAL BID PRN 09/12/20 [History] Acetaminophen Tab [Tylenol Tab] 650 mg PO Q4H PRN #30 tablet 09/13/20 [Rx] Ibuprofen [Motrin] 600 mg PO Q8HR PRN #30 tab 09/13/20 [Rx] Omeprazole 20 mg PO DAILY #30 tablet. 09/13/20 [Rx] Simethicone 40 mg/0.6 ml Drops [Mylicon Drops] 40 mg PO PCHS PRN #30 ml 09/13/20 [Rx] Follow up Appointment(s)/Referral(s): Jerry Manrique MD [Primary Care Provider] - 1-2 days Mikki Hankins MD [STAFF PHYSICIAN] - 09/18/20 4:00 pm Patient Instructions/Handouts: Low Fat Diet (DC), Laparoscopic Cholecystectomy (DC) Activity/Diet/Wound Care/Special Instructions: No lifting over 4 pounds in 4 weeks until Oct 10. You may shower. No bath tub soaks for two weeks until September 26 Use Tylenol and ibuprofen scheduled for the next 24-48 hours for best pain relief. ( last received at 1130, toradol same family as motrin) Use ice along incisions for the today to prevent swelling. last received simethicone drops at [address] with any fever, chills, increased redness or discolored drainage from your puncture sites, uncontrolled pain on any concerns. Low fat diet as tolerated. drink fluids. Discharge Disposition: HOME SELF-CARE <Mikki Hankins - Last Filed: 09/13/20 21:20> Providers Date of admission: 09/12/20 11:23 Attending physician: Mikki Hankins Consults: 09/12/20 10:07 Consult Physician Routine Consulting Provider: [facility] Consult Reason/Comments: [facility] Do you want consulting provider notified?: Yes Primary care physician: Jerry Manrique - Discharge Diagnosis(es) (1) Acute cholecystitis Status: Acute (2) Morbid obesity due to excess calories Status: Acute (3) BMI 60.0-69.9, adult Status: Acute Hospital Course: Patient had presented with acute right upper quadrant abdominal pain. She underwent uncomplicated cholecystectomy. Prior to discharge, she was tolerating diet. Pain was well-controlled. Follow-up in the [facility] 1 week. Procedures: OPERATION: 1. Robotic-assisted da Lenny Xi laparoscopic cholecystectomy, multiport with FIREFLY ESTIMATED BLOOD LOSS: 5 mL. SPECIMENS REMOVED: Gallbladder. COMPLICATIONS: None. OPERATIVE FINDINGS: 1. Peritoneal adhesions with scarring over infundibulum of the gallbladder with cholecystitis
[2020-09-13] MEDS ORDERED: SIMETHICONE 40 MG/0.6 ML DROPS 2,000 MG/30 ML BOTTLE PO SCH (13:00)
== END 2020-09-13 12:54 | disposition home or self-care (01) ==
LOC: EC 08:28 → 6PED 11:23
PROVIDERS: ADMIT Surgery Plastic and Reconstructive Surgery; ATTEND Surgery Plastic and Reconstructive Surgery
DX: K81.0 Acute cholecystitis (principal); K65.9 Peritonitis, unspecified; E66.01 Morbid (severe) obesity due to excess calories; Z68.44 Body mass index [BMI] 60.0-69.9, adult; E03.9 Hypothyroidism, unspecified; I11.9 Hypertensive heart disease without heart failure; J44.9 Chronic obstructive pulmonary disease, unspecified; K21.9 Gastro-esophageal reflux disease without esophagitis; F41.1 Generalized anxiety disorder; F32.9 Major depressive disorder, single episode, unspecified; G43.909 Migraine, unspecified, not intractable, without status migrainosus; F43.10 Post-traumatic stress disorder, unspecified; K66.0 Peritoneal adhesions (postprocedural) (postinfection); R16.2 Hepatomegaly with splenomegaly, not elsewhere classified; K76.0 Fatty (change of) liver, not elsewhere classified; K59.00 Constipation, unspecified; R01.1 Cardiac murmur, unspecified; Z79.899 Other long term (current) drug therapy; Z79.890 Hormone replacement therapy; Z90.49 Acquired absence of other specified parts of digestive tract; Z91.030 Bee allergy status; Z88.8 Allergy status to other drugs, medicaments and biological substances; Z91.018 Allergy to other foods; Z91.02 Food additives allergy status; Z80.9 Family history of malignant neoplasm, unspecified; Z83.79 Family history of other diseases of the digestive system
CPT/HCPCS: 47562; S2900; 36415; 76705; 80053; 81001; 81025; 82150; 83690; 85025; 88304; 99285

== ENCOUNTER → 2020-09-30 | Outpatient (CLI) | payer OTHER ==
[2020-09-30 13:17] VITALS: BMI 62.6
== END ==
LOC: BARWHC3 08:45
PROVIDERS: ATTEND Surgery Plastic and Reconstructive Surgery
DX: E66.01 Morbid (severe) obesity due to excess calories (principal); Z71.3 Dietary counseling and surveillance; Z68.44 Body mass index [BMI] 60.0-69.9, adult; Z88.2 Allergy status to sulfonamides; Z88.8 Allergy status to other drugs, medicaments and biological substances; Z91.018 Allergy to other foods; Z91.030 Bee allergy status
CPT/HCPCS: 97804

== ENCOUNTER → 2020-10-23 | Outpatient (CLI) | payer OTHER | END | disposition home or self-care (01) | LOC: LABWHC1 13:23 | PROVIDERS: ATTEND Surgery Plastic and Reconstructive Surgery | DX: Z71.51 Drug abuse counseling and surveillance of drug abuser (principal) | CPT/HCPCS: 80307; G0482; 80323 ==

== ENCOUNTER 2023-08-21 11:48 | Emergency (ER) | payer OTHER ==
[2023-08-21 11:59] VITALS: BP 130/83; PULSE 64; RESP 20; TEMP 98.4
--- NOTE | 2023-08-21 12:27 | ED ---
Skin/Abscess/FB HPI - General Chief complaint: Skin/Abscess/Foreign Body Stated complaint: Skin Abscess Time Seen by Provider: 08/21/23 12:25 Source: patient, RN notes reviewed Mode of arrival: ambulatory Limitations: no limitations - History of Present Illness Initial comments: 27-year-old female presenting with rectal pain x 4 months that is worsening. She reports she saw her PCP for this 3 months ago and was diagnosed with a hemorrhoid. She then followed up for increased pain and her PCP told her the hemorrhoid had turned into an abscess and drained it and put her on an antibiotic. Patient took full course of antibiotic but reports she has had increasing pain and drainage from the area since then. She reports the drainage is thick and constant. Reports pain while having a bowel movement. She reports the pain is so severe today that she has been vomiting. Denies fever or chills. - Related Data Home Medications Medication Instructions Recorded Confirmed Albuterol Sulfate [Ventolin HFA] 2 puff INHALATION RT-QID PRN 03/29/20 04/28/21 EPINEPHrine (Auto Inject) [Epipen] 0.3 mg IM ONCE PRN 03/29/20 04/28/21 acetaZOLAMIDE [Diamox Sequels] 500 mg PO BID 03/29/20 04/28/21 Ergocalciferol [Vitamin D2 (1250 50,000 unit PO SA 05/09/20 04/28/21 Mcg = 91552 Iu)] Albuterol Nebulized [Ventolin 2.5 mg INHALATION RT-Q6H PRN 09/12/20 04/28/21 Nebulized] Cholecalciferol [Vitamin D3 (25 25 mcg PO DAILY 09/12/20 04/28/21 Mcg = 1000 Iu)] Hydrocortisone [Cortisone 10%] 1 applic TOPICAL BID PRN 09/12/20 04/28/21 Previous Rx's Medication Instructions Recorded Levothyroxine Sodium [Synthroid] 50 mcg PO DAILY #30 tab 07/24/20 Acetaminophen Tab [Tylenol Tab] 650 mg PO Q4H PRN #30 tablet 09/13/20 Ibuprofen [Motrin] 600 mg PO Q8HR PRN #30 tab 09/13/20 Amoxic-Pot Clav 875-125Mg 1 tab PO Q12HR 7 Days #14 tab 08/21/23 [Augmentin 875-125] Allergies Allergy/AdvReac Type Severity Reaction Status Date / Time bee venom protein (honey bee) Allergy Swelling Verified 08/21/23 11:59 chocolate flavor Allergy Unknown Verified 08/21/23 11:59 melatonin Allergy nausea, Verified 08/21/23 11:59 migraines trazodone Allergy Rash/Hives Verified 08/21/23 11:59 sertraline [From Zoloft] AdvReac HIGH Verified 08/21/23 11:59 ANXIETY ARTIFICIAL SWEETNERS Allergy Unknown Uncoded 08/21/23 11:59 Review of Systems ROS Statement: Those systems with pertinent positive or pertinent negative responses have been documented in the HPI. ROS Other: All systems not noted in ROS Statement are negative. Past Medical History Past Medical History: Asthma, GERD/Reflux Additional Past Medical History / Comment(s): heart murmur- "Heart skips a beat" chronic migraines, constipation History of Any Multi-Drug Resistant Organisms: None Reported Past Surgical History: Adenoidectomy, Cholecystectomy, Orthopedic Surgery, Tonsillectomy Additional Past Surgical History / Comment(s): rt wrist surgery for torn ligament; wisdom teeth Past Anesthesia/Blood Transfusion Reactions: No Reported Reaction Past Psychological History: Anxiety, Depression, PTSD Smoking Status: Never smoker Past Alcohol Use History: None Reported Past Drug Use History: None Reported - Past Family History Mother Family Medical History: Cancer General Exam - General Exam Comments Initial Comments: Visual Physical Exam Vital signs reviewed General: Well-appearing, nontoxic, no acute distress. Head: Normocephalic, atraumatic Eyes: PERRLA, EOMI ENT: Airway patent Chest: Nonlabored breathing Skin: No visual rash, normal skin tone Neuro: Alert and oriented 3 Musculoskeletal: No gross abnormalities Limitations: no limitations General appearance: alert, in no apparent distress Head exam: Present: atraumatic, normocephalic, normal inspection Respiratory exam: Present: normal lung sounds bilaterally. Absent: respiratory distress, wheezes, rales, rhonchi, stridor Cardiovascular Exam: Present: regular rate, normal rhythm, normal heart sounds. Absent: systolic murmur, diastolic murmur, rubs, gallop, clicks GI/Abdominal exam: Present: soft, normal bowel sounds. Absent: distended, tenderness, guarding, rebound, rigid Rectal exam: Present: other (Female hair or beauty salon assistant present for rectal exam. 2 x 2 cm area of induration present directly lateral to anus. +ttp. There is active draining at the site.) Course Vital Signs 08/21/23 11:57 Temperature 98.4 F Pulse Rate 64 Respiratory 20 Rate Blood Pressure 130/83 O2 Sat by Pulse 99 Oximetry Medical Decision Making - Medical Decision Making I completed the quick note portion of this chart signed Lety Santiago PA-C Was pt. sent in by a medical professional or institution (, DANNIELLE, GEOTHERMAL OPERATIONS ENGINEER, urgent care, hospital, or residential...) When possible be specific @ -No Did you speak to anyone other than the patient for history (EMS, parent, family, police, friend...)? What history was obtained from this source @ -No Did you review nursing and triage notes (agree or disagree)? Why? @ -I reviewed and agree with nursing and triage notes Were old charts reviewed (outside hosp., previous admission, EMS record, old EKG, old radiological studies, urgent care reports/EKG's, residential records)? Report findings @ -No old charts were reviewed Differential Diagnosis (chest pain, altered mental status, abdominal pain women, abdominal pain men, vaginal bleeding, weakness, fever, dyspnea, syncope, headache, dizziness, GI bleed, back pain, seizure, CVA, palpatations, mental health, musculoskeletal)? @ -Perianal abscess, rectal abscess, rectal fissure, hemorrhoid EKG interpreted by me (3pts min.). @ -None X-rays interpreted by me (1pt min.). @ -None done CT interpreted by me (1pt min.). @ -CT revealed no perianal abscess included in [id number] U/S interpreted by me (1pt. min.). @ -None done What testing was considered but not performed or refused? (CT, X-rays, U/S, labs)? Why? @ -None What meds were considered but not given or refused? Why? @ -None Did you discuss the management of the patient with other professionals ( professionals i.e. DANNIELLE Hernández, GEOTHERMAL OPERATIONS ENGINEER, lab, RT, psych nurse, neonatal social worker, reinstatement clerk, teacher, hotel security officer, returned case inspector)? Give summary @ -No Was smoking cessation discussed for >3mins.? @ -No Was critical care preformed (if so, how long)? @ -No Were there social determinants of health that impacted care today? How? (Homelessness, low income, unemployed, alcoholism, drug addiction, transportation, low edu. Level, literacy, decrease access to med. care, skilled nursing, rehab)? @ -No Was there de-escalation of care discussed even if they declined (Discuss DNR or withdrawal of care, Hospice)? DNR status @ -No What co-morbidities impacted this encounter? (DM, HTN, Smoking, COPD, CAD, Cancer, CVA, ARF, Chemo, Hep., AIDS, mental health diagnosis, sleep apnea, morbid obesity)? @ -None Was patient admitted / discharged? Hospital course, mention meds given and route, prescriptions, significant lab abnormalities, going to OR and other pertinent info. @ -Patient was discharged. Patient was seen and evaluated for perianal abscess x 3 months. Patient has had this drained previously and placed on antibiotic by PCP several months ago but reports worsening drainage and pain. Patient is afebrile, no tachycardia. Female hair or beauty salon assistant present for rectal examination which reveals 2 x 2 cm indurated perianal abscess with active drainage. Patient was given IV Toradol for pain. Lab work including CBC, CMP, and lactic acid was remarkable for mildly elevated liver enzymes, however otherwise unremarkable. CT was negative for perianal abscess. Discussed diagnosis of perianal abscess with patient. Prescribed Augmentin and advised to follow-up with surgery. Strict return/alarm symptoms discussed with patient in detail and she shows understanding and agrees with plan. Case discussed with my attending Dr. Dayanna ayala. Patient discharged in stable condition. Undiagnosed new problem with uncertain prognosis? @ -No Drug Therapy requiring intensive monitoring for toxicity (Heparin, Nitro, Insulin, Cardizem)? @ -No Were any procedures done? @ -No Diagnosis/symptom? @ -Perianal abscess Acute, or Chronic, or Acute on Chronic? @ -Acute Uncomplicated (without systemic symptoms) or Complicated (systemic symptoms)? @ -Uncomplicated Side effects of treatment? @ -No Exacerbation, Progression, or Severe Exacerbation? @ -No Poses a threat to life or bodily function? How? (Chest pain, [place], [place], pneumonia, PE, COPD, DKA, ARF, appy, cholecystitis, CVA, Diverticulitis, Homicidal, Suicidal, threat to staff... and all critical care pts) @ -Low likelihood - Lab Data Result diagrams: 08/21/23 14:54 08/21/23 14:54 Lab Results 08/21/23 08/21/23 08/21/23 Range/Units 14:54 14:54 14:54 WBC 7.7 (3.8-10.6) k/uL RBC 4.37 (3.80-5.40) m/uL Hgb 13.5 (11.4-16.0) gm/dL Hct 39.4 (34.0-46.0) % MCV 90.2 (80.0-100.0) fL MCH 30.9 (25.0-35.0) pg MCHC 34.3 (31.0-37.0) g/dL RDW 13.0 (11.5-15.5) % Plt Count 253 (150-450) k/uL MPV 7.9 Neutrophils % 69 % Lymphocytes % 21 % Monocytes % 6 % Eosinophils % 2 % Basophils % 1 % Neutrophils # 5.4 (1.3-7.7) k/uL Lymphocytes # 1.6 (1.0-4.8) k/uL Monocytes # 0.5 (0-1.0) k/uL Eosinophils # 0.1 (0-0.7) k/uL Basophils # 0.0 (0-0.2) k/uL Sodium 139 (137-145) mmol/L Potassium 4.8 (3.5-5.1) mmol/L Chloride 108 H (98-107) mmol/L Carbon Dioxide 24 (22-30) mmol/L Anion Gap 7 mmol/L BUN 5 L (7-17) mg/dL Creatinine 0.67 (0.52-1.04) mg/dL Est GFR (CKD-EPI)AfAm >90 (>60 ml/min/1.73 sqM) Est GFR (CKD-EPI)NonAf >90 (>60 ml/min/1.73 sqM) Glucose 87 (74-99) mg/dL Plasma Lactic Acid Emre 0.7 (0.7-2.0) mmol/L Calcium 9.1 (8.4-10.2) mg/dL Total Bilirubin 1.3 (0.2-1.3) mg/dL AST 50 H (14-36) U/L ALT 108 H (4-34) U/L Alkaline Phosphatase 50 (38-126) U/L Total Protein 7.0 (6.3-8.2) g/dL Albumin 4.3 (3.5-5.0) g/dL Disposition Clinical Impression: Perianal abscess Disposition: HOME SELF-CARE Condition: Stable Instructions (If sedation given, give patient instructions): Rectal Abscess (ED) Additional Instructions: Please take full course of Augmentin and follow-up with surgery. Please return to the Emergency Department if symptoms worsen or any other concerns. Prescriptions: Amoxic-Pot Clav 875-125Mg [Augmentin 875-125] 1 tab PO Q12HR 7 Days #14 tab Is patient prescribed a controlled substance at d/c from ED?: No Referrals: Cheri Jaquez MD [Primary Care Provider] - 1-2 days Mikki Hankins MD [STAFF PHYSICIAN] - 1-2 days Time of Disposition: 16:12
[2023-08-21] MEDS: KETOROLAC 15 MG/ML 1 ML VIAL IVP STA (14:53)
[2023-08-21 14:58] LABS: Basophils % (A) 1 %; Eosinophils # (A) 0.1 k/uL (0-0.7); Eosinophils % (A) 2 %; HCT 39.4 % (34.0-46.0); HGB 13.5 gm/dL (11.4-16.0); Lymphocytes # (A) 1.6 k/uL (1.0-4.8); Lymphocytes % (A) 21 %; MCH 30.9 pg (25.0-35.0); MCHC 34.3 g/dL (31.0-37.0); MCV 90.2 fL (80.0-100.0); Mean Platelet Volume 7.9; Monocytes # (A) 0.5 k/uL (0-1.0); Monocytes % (A) 6 %; Neutrophils # (A) 5.4 k/uL (1.3-7.7); Neutrophils % (A) 69 %; Platelet Count 253 k/uL (150-450); RBC 4.37 m/uL (3.80-5.40); WBC 7.7 k/uL (3.8-10.6)
[2023-08-21 15:11] LABS: ALT 108 U/L (4-34); African American GFR (CKD) >90 (>60 ml/min/1.73 sqM); Albumin 4.3 g/dL (3.5-5.0); Anion Gap 7 mmol/L; Blood Urea Nitrogen 5 mg/dL (7-17); Calcium 9.1 mg/dL (8.4-10.2); Carbon Dioxide 24 mmol/L (22-30); Chloride 108 mmol/L (98-107); Glucose 87 mg/dL (74-99); Non-African American GFR(CKD) >90 (>60 ml/min/1.73 sqM); Sodium 139 mmol/L (137-145); Total Bilirubin 1.3 mg/dL (0.2-1.3)
[2023-08-21 15:15] LABS: AST 50 U/L (14-36); Alkaline Phosphatase 50 U/L (38-126); Potassium 4.8 mmol/L (3.5-5.1)
--- NOTE | 2023-08-21 15:36 | CT ---
EXAMINATION TYPE: CT abdomen pelvis w con DATE OF EXAM: 08/21/2023 COMPARISON: None HISTORY: anal abscess CT DLP: 3075 mGycm Automated exposure control for dose reduction was used. CONTRAST: CT scan of the abdomen pelvis is performed with IV Contrast, patient injected with 100 mL of Isovue 3 00. FINDINGS- LUNG BASES- No significant abnormality is appreciated. LIVER/GB- Liver reduced attenuation can be associated with hepatic steatosis or underlying hepatoce llular disease. The gallbladder is not seen. Correlate for prior surgery otherwise possibly contracted. Liver measures 17.9 cm and is mildly enlarged. PANCREAS- No gross abnormality is seen. SPLEEN- No gross abnormality is seen. Accessory splenule. ADRENALS- No gross abnormality is seen. KIDNEYS/BLADDER- no hydronephrosis nephrolithiasis or renal mass. BOWEL- no evidence of obstruction. Appendix normal. LYMPH NODES- No greater than 1cm abdominal or pelvic lymph nodes are appreciated. OSSEOUS STRUCTURES- No significant abnormality is seen. OTHER- aorta of normal caliber. IMPRESSION- 1. No perianal abscess is included in the [id number].
== END 2023-08-21 16:28 | disposition home or self-care (01) ==
LOC: EC 11:48
DX: K61.0 Anal abscess (principal); Z91.030 Bee allergy status; Z88.8 Allergy status to other drugs, medicaments and biological substances; Z88.5 Allergy status to narcotic agent
CPT/HCPCS: 36415; 80053; 83605; 85025; 74177; 99284; 96374; J1885; Q9967